=== PATIENT | female | born 1970 | race Caucasian/White ===

== ENCOUNTER 2017-10-10 00:08 | Emergency (ER) | payer SELFPAY ==
[~2017-10-10] VITALS: Ht 172.7 cm; Wt 88.9 kg
[2017-10-10] MEDS ORDERED: fentaNYL INJECTION 100 MCG/2 ML AMP IVP ONE (00:30)
[2017-10-10] MEDS ORDERED: ORPHENADRINE 60 MG/2 ML (NORFLEX) AMP IM ONE (00:30)
--- NOTE | 2017-10-10 00:53 | ED Back Pain ---
General Chief Complaint: Back Problems Stated Complaint: BACK PAIN Nursing Triage Note: PT TO ED 7 W/ C/O LOWER BACK PAIN ONSET 1500 TODAY. DENIES INJURY Nursing Sepsis Screen: No Definite Risk Source of Information: Patient Exam Limitations: No Limitations History of Present Illness Date Seen by Provider: Oct 10, 2017 Time Seen by Provider: 00:14 Initial Comments This 46-year-old woman presents to the emergency room with complaints of lower back pain that started around 15:00. She denies any strenuous activity or injury that prompted the pain. She has had episodes of lower back pain before. She has not taken any medications for the pain. She has associated headache. She reports Toradol intensifies headache and she therefore she does not want to take Toradol. She denies any notable lower extremity paresthesias or weakness. She is ambulatory. She denies any bowel or bladder dysfunction. Allergies and Home Medications Allergies Coded Allergies: Penicillins (Verified Allergy, Unknown, 10/10/17) erythromycin base (Verified Allergy, Unknown, 10/10/17) ketorolac (Verified Adverse Reaction, Unknown, 10/10/17) Uncoded Allergies: VALACEF (Allergy, Unknown, 10/10/17) Home Medications Cyclobenzaprine HCl 10 Mg Tablet, 10 MG PO TID PRN for SPASMS Prescribed by: RAJESH POPE on 10/10/17 005 Prednisone 20 Mg Tab, 20 MG PO DAILY Prescribed by: RAJESH POPE on 10/10/17 0056 Patient Home Medication List Home Medication List Reviewed: Yes Constitutional: no symptoms reported EENTM: no symptoms reported Respiratory: no symptoms reported Cardiovascular: no symptoms reported Gastrointestinal: no symptoms reported Genitourinary: no symptoms reported : No Musculoskeletal: see HPI Skin: no symptoms reported Psychiatric/Neurological: No Symptoms Reported Past Ymniane-Lxuyxt-Jriijw Hx Patient Social History Alcohol Use: Denies Use Recreational Drug Use: No Smoking Status: Never a Smoker Recent Foreign Travel: No Contact w/Someone Who Travel: No Recent Infectious Disease Expo: No Recent Hopitalizations: No Physical Abuse: No Sexual Abuse: No Mistreated: No Fear: No Past Medical History Surgeries: Yes Adenoidectomy, Appendectomy, Section, Gallbladder, Hysterectomy, Orthopedic, Tonsillectomy Respiratory: No Cardiac: No Neurological: No Genitourinary: No Gastrointestinal: No Musculoskeletal: No Endocrine: No HEENT: No Cancer: No Psychosocial: No Nursing Suicide Risk Score: 0 Integumentary: No Adverse Reaction/Blood Tranf: No Physical Exam Vital Signs Vital Signs - First Documented 10/10/17 00:13 Temp 95.0 Pulse 78 Resp 18 B/P (MAP) 136/83 (100) Pulse Ox 99 O2 Delivery Room Air Capillary Refill : Less Than 3 Seconds General Appearance: WD/WN, Mild Distress HEENT: PERRL/EOMI, Normal ENT Inspection Neck: Normal Inspection Cardiovascular: Regular Rate, Rhythm, No Edema, No Murmur Respiratory: Lungs Clear, Normal Breath Sounds, No Accessory Muscle Use, No Respiratory Distress Gastrointestinal: Non Tender, Soft Back: Normal Inspection, Vertebral Tenderness (lumbar), Other (tenderness in the paraspinous muscles of the lower back) Extremity: Normal Inspection, No Pedal Edema Neurologic/Psychiatric: Alert, Oriented x3, No Motor/Sensory Deficits, Normal Mood/Affect, safety supervisor II-XII Norm as Tested, Abnormal Cerebellar Tests Skin: Normal Color, Warm/Dry Progress/Results/Core Measures My Orders Orders - RAJESH AYALA MD Fentanyl Injection (Sublimaze Injection (10/10/17 00:30) Orphenadrine Injection (Norflex Injectio (10/10/17 00:30) Medications Given in ED Current Medications Medications Dose Ordered Sig/Tona Route Start Time Stop Time Status Last Admin Dose Admin Fentanyl Citrate 75 mcg ONCE ONCE IVP 10/10/17 00:30 10/10/17 00:31 DC 10/10/17 00:34 75 MCG Orphenadrine Citrate 60 mg ONCE ONCE IM 10/10/17 00:30 10/10/17 00:31 DC 10/10/17 00:34 60 MG Vital Signs/I&O 10/10/17 00:13 Temp 95.0 Pulse 78 Resp 18 B/P (MAP) 136/83 (100) Pulse Ox 99 O2 Delivery Room Air Blood Pressure Mean: 100 Progress Note : Progress Note Patient received injections of fentanyl and Norflex with good improvement. Discharge instructions reviewed. Patient ambulated freely from the ER. Departure Impression Primary Impression: Lower back pain Qualified Codes: M54.5 - Low back pain Disposition: 01 HOME, SELF-CARE Condition: Improved Departure-Patient Inst. Decision time for Depature: 00:49 Referrals: NO,LOCAL PHYSICIAN (PCP/Family) Primary Care Physician Patient Instructions: Low Back Pain (DC) Add. Discharge Instructions: Take ibuprofen up to 600 mg every 6 hours as needed for primary pain control. Add Tylenol (acetaminophen) up to 1000 mg every 6 hours as needed for additional pain relief. Use gentle heat to help relax your muscles. Use cyclobenzaprine as prescribed if needed for a muscle relaxer. Use this medication with caution as it may cause drowsiness. Return to care if symptoms are worsening, especially if you develop weakness in your legs or loss of control of your bowels or bladder. Start the prednisone as prescribed tomorrow if symptoms are not improving. All discharge instructions reviewed with patient and/or family. Voiced understanding. Scripts Prednisone (Prednisone) 20 Mg Tab 20 MG PO DAILY, #5 TAB Prov: RAJESH AYALA MD 10/10/17 Cyclobenzaprine HCl (Cyclobenzaprine HCl) 10 Mg Tablet 10 MG PO TID PRN for SPASMS, #10 TAB Prov: RAJESH AYALA MD 10/10/17 Work/School Note: Work Release Form Date Seen in the Emergency Department: Oct 10, 2017 Return to Work: Oct 11, 2017 Restrictions: No Restrictions RAJESH AYALA MD Oct 10, 2017 00:53
[2017-10-10] MEDS ORDERED: CYCL10TA9 PO (00:54)
[2017-10-10] MEDS ORDERED: PRD20T PO ×2 (00:54→00:56)
[2017-10-10 01:05] VITALS: BP 131/77
== END 2017-10-10 01:05 | disposition home or self-care (01) ==
LOC: ER 00:11
DX: M54.5 Low back pain (principal); Z90.89 Acquired absence of other organs; Z90.49 Acquired absence of other specified parts of digestive tract; Z87.59 Personal history of other complications of pregnancy, childbirth and the puerperium; Z90.710 Acquired absence of both cervix and uterus; Z88.0 Allergy status to penicillin; Z88.1 Allergy status to other antibiotic agents; Z88.8 Allergy status to other drugs, medicaments and biological substances
CPT/HCPCS: 96372; 96374; 99284

== ENCOUNTER → 2017-12-02 | Outpatient (CLI) | payer SELFPAY ==
[~2017-12-02] MED LIST: CYCL10TA9 PO; PRD20T PO
== END ==
LOC: RAD 06:35
PROVIDERS: ATTEND Nurse Practitioner Family
DX: Z53.8 Procedure and treatment not carried out for other reasons (principal); N94.10 Unspecified dyspareunia

== ENCOUNTER → 2017-12-10 | Outpatient (CLI) | payer SELFPAY ==
--- NOTE | 2017-12-10 12:43 | Diagnostic Imaging Report ---
INDICATION: Dyspareunia. Patient had total hysterectomy in 2003. TECHNIQUE: Multiple realtime grayscale images were obtained of the pelvis in various projections endovaginally. Transabdominal imaging was also performed. The uterus is surgically absent. The bladder is unremarkable. The ovaries were not visualized. No adnexal mass or free fluid is seen. IMPRESSION: Status post hysterectomy. No pelvic mass or fluid collection is identified. Dictated by: Dictated on workstation # [id number]
== END ==
LOC: RAD 11:34
PROVIDERS: ATTEND Nurse Practitioner Family
DX: N94.10 Unspecified dyspareunia (principal); Z90.710 Acquired absence of both cervix and uterus
CPT/HCPCS: 76830; 76856

== ENCOUNTER 2018-08-10 15:39 | Emergency (ER) | payer SELFPAY ==
[~2018-08-10] VITALS: Ht 172.7 cm; Wt 90.7 kg
--- OUTSIDE RECORDS SUMMARY | 2018-08-10 15:46 | XMS REPORT ---
Author Author GARFIELD SMITH [facility] Address [address] [place] [address] Care Team Providers Care Semiconductors Wafer Breaker Name Role Phone GARFIELD SIMTH Unavailable PROBLEMS Type Condition ICD9-CM Code [id number] Code Onset Dates Condition Status SNOMED Code Problem Migraine without aura and without status migrainosus, not intractable G43.009 Active 021529011 Problem Dyspareunia in female N94.10 Active 28737383 Problem Severe episode of recurrent major depressive disorder, without psychotic features F33.2 Active 72249756 Problem Dysthymia F34.1 Active 17462565 Problem Primary insomnia F51.01 Active 1769316 Problem Posttraumatic stress disorder F43.10 Active 00393550 ALLERGIES Substance Reaction Event Type Date Status Penicillin V Potassium Unknown Drug Allergy Jan, Active Ketorolac Tromethamine Unknown Drug Allergy Jan, Active Erythromycin Unknown Drug Allergy Jan, Active ENCOUNTERS Encounter Location Date Diagnosis [place] [address] [address] Mar, [place] [address] [place] [id number] [place] [address] Feb, [place] [address] [address] Feb, Migraine without aura and without status migrainosus, not intractable G43.009 and Dysthymia F34.1 [facility] [address] [address] Jan, Severe episode of recurrent major depressive disorder, without psychotic features F33.2 and Posttraumatic stress disorder F43.10 [facility] [id number] [place] [address] Jan, [place] [address], [place] [address] Jan, Syncope, unspecified syncope type R55 [facility] [id number] [place] [address] Jan, [facility] [address] [place] [address]- 6[address] Jan, Vertigo R42 [facility] [id number] [place] [address] Jan, Dizziness R42 ; Acute cystitis with hematuria N30.01 and Dysuria R30.0 [place] [id number] [place] [address] Jan, Severe episode of recurrent major depressive disorder, without psychotic features F33.2 and Posttraumatic stress disorder F43.10 [place] [id number] [place] [address] 47[address] Dec, Severe episode of recurrent major depressive disorder, without psychotic features F33.2 [place] [address] [place] [address] Dec, Severe episode of recurrent major depressive disorder, without psychotic features F33.2 and Posttraumatic stress disorder F43.10 [facility] [address] [address] Nov, Dyspareunia in female N94.10 [facility] [address] [place] [address] Nov, Severe episode of recurrent major depressive disorder, without psychotic features F33.2 and Posttraumatic stress disorder F43.10 [facility] [address] [place] [address] 37[address] Nov, Primary insomnia F51.01 ; Severe episode of recurrent major depressive disorder, without psychotic features F33.2 and Dyspareunia in female N94.10 [facility] [address] [place] [address] Nov, [place] [address] [facility] [id number] [address] October, Severe episode of recurrent major depressive disorder, without psychotic features F33.2 and Posttraumatic stress disorder F43.10 [place] [address] [facility] [id number], [place] [address] October, Severe episode of recurrent major depressive disorder, without psychotic features F33.2 and Posttraumatic stress disorder F43.10 [place] [address] [place] [id number] [address] October, Dysthymia F34.1 ; Encounter to establish care Z76.89 ; Routine health maintenance Z00.00 and Closed compression fracture of L2 lumbar vertebra with routine healing, subsequent encounter S32.020D [place] [address] [place] [address] [id number] [address] Sep, Lumbar pain with radiation down right leg M54.5 and Nausea R11.0 IMMUNIZATIONS No Known Immunizations SOCIAL HISTORY Never Assessed REASON FOR VISIT Dizziness / passing out- States last thursday she began getting dizzy, saw Carly on Thursday because she ''passed out'', then states today while in the car began getting groggy then ''passed out''- Adelaide Lehman RN PLAN OF CARE Activity Details Follow Up 1-2wk if not improving with PCP or reg follow up Reason: VITAL SIGNS Height 67 in 2018-02-01 Weight 211 lbs 2018-02-01 Temperature 97.8 degrees Fahrenheit 2018-02-01 Heart Rate 80 bpm 2018-02-01 Respiratory Rate 16 2018-02-01 BMI 33.04 kg/m2 2018-02-01 Blood pressure systolic 138 mmHg 2018-02-01 Blood pressure diastolic 74 mmHg 2018-02-01 MEDICATIONS Medication Instructions Dosage Frequency Start Date End Date Duration Status Prozac 40 MG Orally Once a day 1 capsule in the morning 24h October, 30 day(s) Active Meclizine HCl 25 MG Orally 2 times a day PRN 1 tablet as needed Jan, 07 days Active Trazodone HCl 50 mg Orally at bedtime 1/2 tablet at bedtime as needed Nov, 30 day(s) Active RESULTS No Results PROCEDURES Procedure Date Ordered Result Body Site ELECTROCARDIOGRAM, TRACING Feb 01, 2018 GLUCOSE BLOOD TEST Feb 01, 2018 BASIC METABOLIC PANEL Feb 01, 2018 COMPLETE CBC W/AUTO DIFF WBC Feb 01, 2018 VENIPUNCT, ROUTINE* Feb 01, 2018 ASSAY THYROID STIM HORMONE Feb 01, 2018 INSTRUCTIONS MEDICATIONS ADMINISTERED No Known Medications MEDICAL (GENERAL) HISTORY Type Description Date Medical History 10% compression of L2, narrowing of L1&L2 disc space Surgical History ankle surgery, right Surgical History right knee arthroscopy Surgical History hysterectomy Surgical History tonsillectomy and adenoidectomy Surgical History colonoscopy Surgical History appendectomy (with hysterectomy) Surgical History cholecystectomy Surgical History exploratory laparoscopy (multiple) Hospitalization History surgeries
--- OUTSIDE RECORDS SUMMARY | 2018-08-10 15:46 | XMS REPORT ---
Author Author KING WILLIAM [facility] Address [address] [place] [address] Care Team Providers Care Expense Clerk Name Role Phone WILLIAM OROZCO Unavailable PROBLEMS Type Condition ICD9-CM Code [id number] Code Onset Dates Condition Status SNOMED Code Problem Migraine without aura and without status migrainosus, not intractable G43.009 Active 992014129 Problem Dyspareunia in female N94.10 Active 29715034 Problem Severe episode of recurrent major depressive disorder, without psychotic features F33.2 Active 13624471 Problem Dysthymia F34.1 Active 54323232 Problem Primary insomnia F51.01 Active 2551809 Problem Posttraumatic stress disorder F43.10 Active 76471524 ALLERGIES No Information ENCOUNTERS Encounter Location Date Diagnosis [place] [address] [place] [id number] [place] [address] Mar, [place] [address] [place] [id number] [place] [address] Feb, [place] [address] [place] [id number] [place] [address] Feb, Migraine without aura and without status migrainosus, not intractable G43.009 and Dysthymia F34.1 [facility] [address] [id number] [place] [address] Jan, Severe episode of recurrent major depressive disorder, without psychotic features F33.2 and Posttraumatic stress disorder F43.10 [facility] [address] [place] [id number] [place] [address]- [address] Jan, [place] [address] [place] [id number] [place] [address]- [address] Jan, Syncope, unspecified syncope type R55 [place] [address], [place] [address] Jan, [facility] [address] [id number] [place] [address]- [address] Jan, Vertigo R42 [facility] [address], [place] [address] Jan, Dizziness R42 ; Acute cystitis with hematuria N30.01 and Dysuria R30.0 [facility] [id number] [address] Jan, Severe episode of recurrent major depressive disorder, without psychotic features F33.2 and Posttraumatic stress disorder F43.10 [place] [address] [place] [id number] [place] [address]80[address] Dec, Severe episode of recurrent major depressive disorder, without psychotic features F33.2 [place] [address] [place] [id number] [place] [address]88- 6[address] Dec, Severe episode of recurrent major depressive disorder, without psychotic features F33.2 and Posttraumatic stress disorder F43.10 [facility] [address] [place] [address] 8[address]- 3[address] Nov, Dyspareunia in female N94.10 [place] [address], [place] [address] Nov, Severe episode of recurrent major depressive disorder, without psychotic features F33.2 and Posttraumatic stress disorder F43.10 [facility] [address], [place] [address] Nov, Primary insomnia F51.01 ; Severe episode of recurrent major depressive disorder, without psychotic features F33.2 and Dyspareunia in female N94.10 [facility] [address], [place] [address] Nov, [facility] [address], [place] [address] October, Severe episode of recurrent major depressive disorder, without psychotic features F33.2 and Posttraumatic stress disorder F43.10 [facility] [address] [facility] [id number] [address] October, Severe episode of recurrent major depressive disorder, without psychotic features F33.2 and Posttraumatic stress disorder F43.10 [facility] [address] [facility] [id number] [address] October, Dysthymia F34.1 ; Encounter to establish care Z76.89 ; Routine health maintenance Z00.00 and Closed compression fracture of L2 lumbar vertebra with routine healing, subsequent encounter S32.020D [place] [address] [facility] [id number] [address] Sep, Lumbar pain with radiation down right leg M54.5 and Nausea R11.0 IMMUNIZATIONS No Known Immunizations SOCIAL HISTORY Never Assessed REASON FOR VISIT question PLAN OF CARE VITAL SIGNS MEDICATIONS Unknown Medications RESULTS No Results PROCEDURES No Known procedures INSTRUCTIONS MEDICATIONS ADMINISTERED No Known Medications MEDICAL [...]
--- OUTSIDE RECORDS SUMMARY | 2018-08-10 15:46 | XMS REPORT ---
Author Author NORMA GREEN [facility] Address [address] [place] [address] Care Team Providers Care Washing Machine Loader Name Role Phone NORMA GREEN Unavailable PROBLEMS Type Condition ICD9-CM Code [id number] Code Onset Dates Condition Status SNOMED Code Problem Migraine without aura and without status migrainosus, not intractable G43.009 Active 319643169 Problem Dyspareunia in female N94.10 Active 86828583 Problem Severe episode of recurrent major depressive disorder, without psychotic features F33.2 Active 40753644 Problem Dysthymia F34.1 Active 02861766 Problem Primary insomnia F51.01 Active 6755995 Problem Posttraumatic stress disorder F43.10 Active 93729957 ALLERGIES No Information ENCOUNTERS Encounter Location Date Diagnosis [facility] [address] [id number] [place] [address] Mar, [facility] [address] [address] Feb, Lumbar pain with radiation down right leg M54.5 [facility] [id number] [place] [address] 01316- 28[address] Feb, [facility] [id number] [place] [address] 860[address]- [address] Feb, [facility] [id number] [place] [address] 49[address]- [address] Feb, Migraine without aura and without status migrainosus, not intractable G43.009 and Dysthymia F34.1 [facility] [address] [place] [address] 02032- 8697 Jan, Severe episode of recurrent major depressive disorder, without psychotic features F33.2 and Posttraumatic stress disorder F43.10 [place] [address] [address] Jan, [facility] [address] [id number] [place] [address] 81068- 9[address] Jan, Syncope, unspecified syncope type R55 [facility] [id number] [place] [address]88- 7055 Jan, [facility] [id number] [place] [address]- 6[address] Jan, Vertigo R42 [facility] [id number] [place] [address] Jan, Dizziness R42 ; Acute cystitis with hematuria N30.01 and Dysuria R30.0 [place] [id number] [place] [address]- [address] Jan, Severe episode of recurrent major depressive disorder, without psychotic features F33.2 and Posttraumatic stress disorder F43.10 [place] [address] [place] [address] 90335- 9859 Dec, Severe episode of recurrent major depressive disorder, without psychotic features F33.2 [place] [address] [place] [address] 57293- 3029 Dec, Severe episode of recurrent major depressive disorder, without psychotic features F33.2 and Posttraumatic stress disorder F43.10 [place] [address] [address] Nov, Dyspareunia in female N94.10 [facility] [address] [address]- [address] Nov, Severe episode of recurrent major depressive disorder, without psychotic features F33.2 and Posttraumatic stress disorder F43.10 [facility] [address] [address] Nov, Primary insomnia F51.01 ; Severe episode of recurrent major depressive disorder, without psychotic features F33.2 and Dyspareunia in female N94.10 [place] [address] [place] [id number] [address] Nov, [place] [address] [place] [address]50- 3337 October, Severe episode of recurrent major depressive disorder, without psychotic features F33.2 and Posttraumatic stress disorder F43.10 [place] [address] [address] [address] [place] [address] 20669- 6687 October, Severe episode of recurrent major depressive disorder, without psychotic features F33.2 and Posttraumatic stress disorder F43.10 [place] [address] [address] [address] [place] [address]805- 3[address] October, Dysthymia F34.1 ; Encounter to establish care Z76.89 ; Routine health maintenance Z00.00 and Closed compression fracture of L2 lumbar vertebra with routine healing, subsequent encounter S32.020D [place] [address] [place] [address]19- 0885 Sep, Lumbar pain with radiation down right leg M54.5 and Nausea R11.0 IMMUNIZATIONS No Known Immunizations SOCIAL HISTORY Never Assessed REASON FOR VISIT f/u PLAN OF CARE Activity Details Follow Up Next available Reason: F/U VITAL SIGNS MEDICATIONS Unknown Medications RESULTS No Results PROCEDURES Procedure Date Ordered Result Body Site Psychotherapy, patient &/family, 45 minutes, established patient Feb 18, 2018 INSTRUCTIONS MEDICATIONS ADMINISTERED No Known Medications [...]
--- OUTSIDE RECORDS SUMMARY | 2018-08-10 15:46 | XMS REPORT ---
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 Active 14518304 Problem Dysthymia F34.1 Active 32022336 Problem Primary insomnia F51.01 Active 7349224 Problem Posttraumatic stress disorder F43.10 Active 51099006 ALLERGIES Substance Reaction Event Type Date Status Penicillin V Potassium Unknown Drug Allergy Feb, Active Ketorolac Tromethamine Unknown Drug Allergy Feb, Active Erythromycin Unknown Drug Allergy Feb, Active ENCOUNTERS Encounter Location Date Diagnosis [place] [id number] [place] [address] 41942- 2522 Mar, [facility] [id number] [place] [address] 22917- 6624 Feb, Lumbar pain with radiation down right leg M54.5 [facility] [id number] [place] [address] 66336- 7300 Feb, [facility] [id number] [place] [address] 67623- 5472 Feb, [facility] [id number] [place] [address] 65868- 7413 Feb, Migraine without aura and without status migrainosus, not intractable G43.009 and Dysthymia F34.1 [facility] [address] 55367- 6039 Jan, Severe episode of recurrent major depressive disorder, without psychotic features F33.2 and Posttraumatic stress disorder F43.10 [facility] [id number] [place] [address] 14886- 6828 Jan, [facility] [id number] [place] [address] 58403- 9069 Jan, Syncope, unspecified syncope type R55 [facility] [id number] [place] [address] 90812- 6219 Jan, [facility] [id number] [place] [address] 33148- 0521 Jan, Vertigo R42 [facility] [id number] [place] [address] 94749 -7144 Jan, Dizziness R42 ; Acute cystitis with hematuria N30.01 and Dysuria R30.0 [place] [id number] [place] [address] 29979- 7870 Jan, Severe episode of recurrent major depressive disorder, without psychotic features F33.2 and Posttraumatic stress disorder F43.10 [place] [id number] [place] [address] 21010- 8742 Dec, Severe episode of recurrent major depressive disorder, without psychotic features F33.2 [place] [id number] [place] [address] 54560- 2191 Dec, Severe episode of recurrent major depressive disorder, without psychotic features F33.2 and Posttraumatic stress disorder F43.10 [facility] [id number] [place] [address] 02738- 1160 Nov, Dyspareunia in female N94.10 [facility] [id number] [place] [address] 26721- 4677 Nov, Severe episode of recurrent major depressive disorder, without psychotic features F33.2 and Posttraumatic stress disorder F43.10 [facility] [id number] [place] [address] 50580- 3479 Nov, Primary insomnia F51.01 ; Severe episode of recurrent major depressive disorder, without psychotic features F33.2 and Dyspareunia in female N94.10 [place] [id number] [place] [address] 83480- 1651 Nov, [place] [id number] [place] [address] 88029- 2035 October, Severe episode of recurrent major depressive disorder, without psychotic features F33.2 and Posttraumatic stress disorder F43.10 [place] [id number] [place] [address] 31480- 3772 October, Severe episode of recurrent major depressive disorder, without psychotic features F33.2 and Posttraumatic stress disorder F43.10 [place] [address] [place] [address] 69055- 8222 October, Dysthymia F34.1 ; Encounter to establish care Z76.89 ; Routine health maintenance Z00.00 and Closed compression fracture of L2 lumbar vertebra with routine healing, subsequent encounter S32.020D [place] [address] [place] [address] 40316- 4251 Sep, Lumbar pain with radiation down right leg M54.5 and Nausea R11.0 IMMUNIZATIONS Vaccine Route Administration Date Status PHENERGAN (IM) 25 MG (25 MG/ML) IM Intramuscular Mar 03, 2018 Administered SOCIAL HISTORY Never Assessed REASON FOR VISIT Headache x 3 days. Tylenol/Ibuprofen/Excedrin Migraine. Allergy to Toradol. Pt requesting refill on depression medication.-[facility] PLAN OF CARE Activity Details Follow Up prn Reason: VITAL SIGNS Height 67 in 2018-03-03 Weight 213.3 lbs 2018-03-03 Temperature 98.7 degrees Fahrenheit 2018-03-03 Heart Rate 80 bpm 2018-03-03 Respiratory Rate 18 2018-03-03 BMI 33.40 kg/m2 2018-03-03 Blood pressure systolic 138 mmHg 2018-03-03 Blood pressure diastolic 88 mmHg 2018-03-03 MEDICATIONS Medication Instructions Dosage Frequency Start Date End Date Duration Status Prozac 40 mg Orally Once a day 1 capsule in the morning 24h October, 30 day(s) Active Imitrex 25 MG Orally Twice a day prn 1 tablet as needed Feb, Active Trazodone HCl 50 mg Orally at bedtime 1/2 tablet at bedtime as needed Nov, 30 day(s) Active Promethazine HCl 50 MG/ML Injection one time 0.5 ml Feb,Feb 1 dose Active RESULTS No Results PROCEDURES Procedure Date Ordered Result Body Site PHENERGAN (IM) 25 MG (25 MG/ML) Mar 03, 2018 THER/PROPH/DIAG INJ, SC/IM Mar 03, 2018 INSTRUCTIONS MEDICATIONS ADMINISTERED No Known Medications [...]
--- OUTSIDE RECORDS SUMMARY | 2018-08-10 15:46 | XMS REPORT ---
Author Author DORIAN WALKER Organization [facility] Address [address] [place] [address] Care Team Providers Care Refrigerated Company Driver Name Role Phone WALKERDORIAN Unavailable PROBLEMS Type Condition ICD9-CM Code XMU33-HG Code Onset Dates Condition Status SNOMED Code Problem Migraine without aura and without status migrainosus, not intractable G43.009 Active 496413396 Problem Dyspareunia in female N94.10 Active 20686388 Problem Severe episode of recurrent major depressive disorder, without psychotic features F33.2 Active 32060156 Problem Dysthymia F34.1 Active 52715069 Problem Primary insomnia F51.01 Active 2925025 Problem Posttraumatic stress disorder F43.10 Active 94534154 ALLERGIES No Information ENCOUNTERS Encounter Location Date Diagnosis [facility] [address] 0[address]86- 9398 18 Mar, 2018 [facility] [address] 85368 -8304 Mar, [facility] [id number] [place] [address] 09648- 5433 Feb, Lumbar pain with radiation down right leg M54.5 [facility] [id number] [place] [address] 81355- 6873 Feb, [facility] [address] 35205- 2157 Feb, [facility] [address] 58751- 8084 Feb, Migraine without aura and without status migrainosus, not intractable G43.009 and Dysthymia F34.1 [facility] [address] 29737- 2301 Jan, Severe episode of recurrent major depressive disorder, without psychotic features F33.2 and Posttraumatic stress disorder F43.10 [facility] [id number] [place] [address] 15130- 0498 Jan, [facility] [id number] [place] [address] 91813- 0162 Jan, Syncope, unspecified syncope type R55 [facility] [id number] [place] [address] 66810- 6997 Jan, [facility] [id number] [place] [address] 70269- 9926 Jan, Vertigo R42 [facility] [id number] [place] [address] 31394 -6493 Jan, Dizziness R42 ; Acute cystitis with hematuria N30.01 and Dysuria R30.0 [facility] [id number] [place] [address] 82920- 5081 Jan, Severe episode of recurrent major depressive disorder, without psychotic features F33.2 and Posttraumatic stress disorder F43.10 [place] [id number] [place] [address] 85898- 1816 Dec, Severe episode of recurrent major depressive disorder, without psychotic features F33.2 [facility] [address] [address] 5093 Dec, Severe episode of recurrent major depressive disorder, without psychotic features F33.2 and Posttraumatic stress disorder F43.10 [facility] [id number] [place] [address] 88349- 0066 Nov, Dyspareunia in female N94.10 [facility] [id number] [place] [address] 39919- 3349 Nov, Severe episode of recurrent major depressive disorder, without psychotic features F33.2 and Posttraumatic stress disorder F43.10 [facility] [id number] [place] [address] 53042- 2164 Nov, Primary insomnia F51.01 ; Severe episode of recurrent major depressive disorder, without psychotic features F33.2 and Dyspareunia in female N94.10 [place] [address] [place] [address] 86277- 9726 Nov, [place] [id number] [place] [address] 55914- 1667 October, Severe episode of recurrent major depressive disorder, without psychotic features F33.2 and Posttraumatic stress disorder F43.10 [place] [id number] [place] [address] 16405- 0197 October, Severe episode of recurrent major depressive disorder, without psychotic features F33.2 and Posttraumatic stress disorder F43.10 [place] [id number] [place] [address] 47402- 4652 October, Dysthymia F34.1 ; Encounter to establish care Z76.89 ; Routine health maintenance Z00.00 and Closed compression fracture of L2 lumbar vertebra with routine healing, subsequent encounter S32.020D [place] [address] [place] [address] 60862- 0969 Sep, Lumbar pain with radiation down right leg M54.5 and Nausea R11.0 IMMUNIZATIONS No Known Immunizations SOCIAL HISTORY Never Assessed REASON FOR VISIT bumps underarm - right- since thursday... had appt on ...she showed ramila then. was advised if they didnt get better...make an appt with her. pt came to [facility] today...no co pay...appt will be made with ramila schuler aprn. advised pt to tylenol et ibuprofen wasm moist packs, et fu with pcp. karen appt made with mitch dennis on at 0820 PLAN OF CARE VITAL SIGNS Height 67 in 2018-04-03 Weight 214.8 lbs 2018-04-03 Temperature 97.9 degrees Fahrenheit 2018-04-03 Heart Rate 80 bpm 2018-04-03 Respiratory Rate 20 2018-04-03 BMI 33.64 kg/m2 2018-04-03 Blood pressure systolic 126 mmHg 2018-04-03 Blood pressure diastolic 80 mmHg 2018-04-03 MEDICATIONS Medication Instructions Dosage Frequency Start Date End Date Duration Status Prozac 40 mg Orally Once a day 1 capsule in the morning 24h October, 30 day(s) Active Naproxen 500 mg Orally every 12 hrs 1 tablet with food or milk as needed 12h Feb, Active Gabapentin 300 MG Orally twice a day 1 capsule 12h Feb, 30 day( s) Active RESULTS No Results PROCEDURES No Known procedures [...]
--- OUTSIDE RECORDS SUMMARY | 2018-08-10 15:46 | XMS REPORT ---
Author Author WILLIAM OROZCO Organization [facility] Address [address] [place] [address] Care Team Providers Care Scrap Cutter Name Role Phone WILLIAM OROZCO Unavailable PROBLEMS Type Condition ICD9-CM Code MHE79-FT Code Onset Dates Condition Status SNOMED Code Problem Migraine without aura and without status migrainosus, not intractable G43.009 Active 256029479 Problem Dyspareunia in female N94.10 Active 89060130 Problem Severe episode of recurrent major depressive disorder, without psychotic features F33.2 Active 00297236 Problem Dysthymia F34.1 Active 42184833 Problem Primary insomnia F51.01 Active 2508407 Problem Posttraumatic stress disorder F43.10 Active 28013415 ALLERGIES No Information ENCOUNTERS Encounter Location Date Diagnosis [facility] [address] 25169- 3150 Apr, Migraine without aura and without status migrainosus, not intractable G43.009 [facility] [id number] [place] [address] 78915- 7000 19 Mar, 2018 [facility] [id number] [place] [address] 25661- 8184 16 Mar, 2018 Skin infection L08.9 [facility] [id number] [place] [address] 26202 -1137 13 Mar, 2018 [facility] [address] 55908- 9728 Feb, Lumbar pain with radiation down right leg M54.5 [facility] [address] 68993- 5908 24 Feb, 2018 [facility] [address] 73057- 9676 Feb, [facility] [id number] [place] [address] 75082- 4387 Feb, Migraine without aura and without status migrainosus, not intractable G43.009 and Dysthymia F34.1 [facility] [id number] [place] [address] 21607- 7998 Jan, Severe episode of recurrent major depressive disorder, without psychotic features F33.2 and Posttraumatic stress disorder F43.10 [place] [id number] [place] [address] 42223- 0116 Jan, [place] [id number] [place] [address] 48971- 3114 Jan, Syncope, unspecified syncope type R55 [facility] [id number] [place] [address] 67264- 2131 Jan, [place] [address] 75425- 7564 Jan, Vertigo R42 [facility] [id number] [place] [address] 44630 -2617 Jan, Dizziness R42 ; Acute cystitis with hematuria N30.01 and Dysuria R30.0 [facility] [id number] [place] [address] 45901- 3122 Jan, Severe episode of recurrent major depressive disorder, without psychotic features F33.2 and Posttraumatic stress disorder F43.10 [place] [id number] [place] [address] 75874- 3865 Dec, Severe episode of recurrent major depressive disorder, without psychotic features F33.2 [place] [id number] [place] [address] 35677- 3719 Dec, Severe episode of recurrent major depressive disorder, without psychotic features F33.2 and Posttraumatic stress disorder F43.10 [facility] [id number] [place] [address] 44042- 8471 Nov, Dyspareunia in female N94.10 [place] [address] [place] [address] 68356- 0151 11 Nov, 2017 Severe episode of recurrent major depressive disorder, without psychotic features F33.2 and Posttraumatic stress disorder F43.10 [place] [address] [place] [address] 48387- 6580 06 Nov, 2017 Primary insomnia F51.01 ; Severe episode of recurrent major depressive disorder, without psychotic features F33.2 and Dyspareunia in female N94.10 [place] [id number] [place] [address] 92946- 7720 Nov, [place] [id number] [place] [address] 37823- 3289 October, Severe episode of recurrent major depressive disorder, without psychotic features F33.2 and Posttraumatic stress disorder F43.10 [place] [id number] [place] [address] 60684- 3500 14 Oct, 2017 Severe episode of recurrent major depressive disorder, without psychotic features F33.2 and Posttraumatic stress disorder F43.10 [place] [id number] [place] [address] 65376- 5155 14 Oct, 2017 Dysthymia F34.1 ; Encounter to establish care Z76.89 ; Routine health maintenance Z00.00 and Closed compression fracture of L2 lumbar vertebra with routine healing, subsequent encounter S32.020D [place] [id number] [place] [address] 53013- 8190 Sep, Lumbar pain with radiation down right leg M54.5 and Nausea R11.0 IMMUNIZATIONS No Known Immunizations SOCIAL HISTORY Never Assessed REASON FOR VISIT PLAN OF CARE VITAL SIGNS MEDICATIONS Medication Instructions Dosage Frequency Start Date End Date Duration Status Imitrex 25 MG Orally Twice a day prn 1 tablet as needed Feb, Active RESULTS No Results PROCEDURES No Known [...]
--- OUTSIDE RECORDS SUMMARY | 2018-08-10 15:46 | XMS REPORT ---
Author Author WILLIAM OROZCO [facility] Address [address] [place] [address] Care Team Providers Care Figure Model Name Role Phone WILLIAM OROZCO Unavailable PROBLEMS ALLERGIES No Information ENCOUNTERS IMMUNIZATIONS No Known Immunizations SOCIAL HISTORY No smoking Hx information available REASON FOR VISIT PLAN OF CARE VITAL SIGNS MEDICATIONS No Known Medications RESULTS No Results PROCEDURES No Known procedures INSTRUCTIONS MEDICATIONS ADMINISTERED No Known Medications MEDICAL (GENERAL) HISTORY
--- OUTSIDE RECORDS SUMMARY | 2018-08-10 15:46 | XMS REPORT ---
Author Author IWLLIAM OROZCO [facility] Address [address] [place] [address] Care Team Providers Care Compliance Manager Name Role Phone WILLIAM OROZCO Unavailable PROBLEMS Type Condition ICD9-CM Code AHN39-PF Code Onset Dates Condition Status SNOMED Code Problem Migraine without aura and without status migrainosus, not intractable G43.009 Active 106739605 Problem Dyspareunia in female N94.10 Active 26617160 Problem Severe episode of recurrent major depressive disorder, without psychotic features F33.2 Active 04642653 Problem Dysthymia F34.1 Active 99305263 Problem Primary insomnia F51.01 Active 9565058 Problem Posttraumatic stress disorder F43.10 Active 86694663 ALLERGIES Substance Reaction Event Type Date Status Penicillin V Potassium Unknown Drug Allergy Feb, Active Ketorolac Tromethamine Unknown Drug Allergy Feb, Active Erythromycin Unknown Drug Allergy Feb, Active ENCOUNTERS Encounter Location Date Diagnosis [facility] [id number] [place] [address] 72503- 1695 Feb, Lumbar pain with radiation down right leg M54.5 [facility] [id number] [place] [address] 49658- 8197 Feb, [facility] [id number] [place] [address] 82383- 0970 Feb, [facility] [id number] [place] [address] 15593- 5615 Feb, Migraine without aura and without status migrainosus, not intractable G43.009 and Dysthymia F34.1 [facility] [id number] [place] [address] 90679- 5164 Jan, Severe episode of recurrent major depressive disorder, without psychotic features F33.2 and Posttraumatic stress disorder F43.10 [place] [address] [address]- [address]1 Jan, [facility] [id number] [place] [address] 40483- 0003 Jan, Syncope, unspecified syncope type R55 [facility] [id number] [place] [address] 74061- 9581 Jan, [facility] [id number] [place] [address] 87084- 2669 Jan, Vertigo R42 [facility] [id number] [place] [address] 20157 -8527 Jan, Dizziness R42 ; Acute cystitis with hematuria N30.01 and Dysuria R30.0 [place] [id number] [place] [address] 05109- 0700 Jan, Severe episode of recurrent major depressive disorder, without psychotic features F33.2 and Posttraumatic stress disorder F43.10 [place] [id number] [place] [address] 52017- 6535 Dec, Severe episode of recurrent major depressive disorder, without psychotic features F33.2 [place] [id number] [place] [address] 74066- 1339 Dec, Severe episode of recurrent major depressive disorder, without psychotic features F33.2 and Posttraumatic stress disorder F43.10 [place] [address] [place] [address] 32035- 7165 Nov, Dyspareunia in female N94.10 [facility] [id number] [place] [address] 73895- 6274 Nov, Severe episode of recurrent major depressive disorder, without psychotic features F33.2 and Posttraumatic stress disorder F43.10 [place] [address] [place] [address] 27632- 4841 Nov, Primary insomnia F51.01 ; Severe episode of recurrent major depressive disorder, without psychotic features F33.2 and Dyspareunia in female N94.10 [place] [address] [address]- 0495 Nov, [place] [address] [place] [address] 79288- 7258 October, Severe episode of recurrent major depressive disorder, without psychotic features F33.2 and Posttraumatic stress disorder F43.10 [place] [id number] [place] [address] 86296- 4384 October, Severe episode of recurrent major depressive disorder, without psychotic features F33.2 and Posttraumatic stress disorder F43.10 [place] [id number] [place] [address] 38566- 5994 October, Dysthymia F34.1 ; Encounter to establish care Z76.89 ; Routine health maintenance Z00.00 and Closed compression fracture of L2 lumbar vertebra with routine healing, subsequent encounter S32.020D [place] [address] [place] [address] 69476- 5075 Sep, Lumbar pain with radiation down right leg M54.5 and Nausea R11.0 IMMUNIZATIONS No Known Immunizations SOCIAL HISTORY Never Assessed REASON FOR VISIT Shortness of breath/Right sided back pain-[facility] [employer] PLAN OF CARE Activity Details Follow Up 4 Weeks Reason:back pain VITAL SIGNS Height 67 in 2018-03-17 Weight 215 lbs 2018-03-17 Temperature 98.4 degrees Fahrenheit 2018-03-17 Heart Rate 78 bpm 2018-03-17 Respiratory Rate 18 2018-03-17 Oximetry 98 % 2018-03-17 BMI 33.67 kg/m2 2018-03-17 Blood pressure systolic 128 mmHg 2018-03-17 Blood pressure diastolic 68 mmHg 2018-03-17 MEDICATIONS Medication Instructions Dosage Frequency Start Date End Date Duration Status Naproxen 500 mg Orally every 12 hrs 1 tablet with food or milk as needed 12h Feb, Active Gabapentin 300 MG Orally twice a day 1 capsule 12h Feb, 30 day( s) Active Prozac 40 mg Orally Once a day 1 capsule in the morning 24h October, 30 day(s) Active RESULTS No Results PROCEDURES No Known [...]
--- OUTSIDE RECORDS SUMMARY | 2018-08-10 15:47 | XMS REPORT ---
Author Author NORMA GREEN [facility] Address [address] [place] [address] Care Team Providers Care Designated Broker Name Role Phone NORMA GREEN Unavailable PROBLEMS Type Condition ICD9-CM Code XZM07-YK Code Onset Dates Condition Status SNOMED Code Problem Dyspareunia in female N94.10 Active 45171491 Problem Primary insomnia F51.01 Active 3502328 Problem Dysthymia F34.1 Active 43998163 Problem Posttraumatic stress disorder F43.10 Active 48269887 Problem Severe episode of recurrent major depressive disorder, without psychotic features F33.2 Active 34678869 ALLERGIES No Information ENCOUNTERS Encounter Location Date Diagnosis [facility] [id number] [place] [address] Mar, [facility] [address] [address] Jan, Severe episode of recurrent major depressive disorder, without psychotic features F33.2 and Posttraumatic stress disorder F43.10 [facility] [id number] [place] [address] 3606 Jan, [facility] [address] [address] Jan, Syncope, unspecified syncope type R55 [facility] [address] [address] Jan, [facility] [address] [address] Jan, Vertigo R42 [facility] [id number] [place] [address] Jan, Dizziness R42 ; Acute cystitis with hematuria N30.01 and Dysuria R30.0 [facility] [address], [place] [address] Jan, Severe episode of recurrent major depressive disorder, without psychotic features F33.2 and Posttraumatic stress disorder F43.10 [facility] [address], [place] [address] Dec, Severe episode of recurrent major depressive disorder, without psychotic features F33.2 [facility] [address], [place] [address] Dec, Severe episode of recurrent major depressive disorder, without psychotic features F33.2 and Posttraumatic stress disorder F43.10 [place] [address], [place] [address] Nov, Dyspareunia in female N94.10 [place] [address], [place] [address] Nov, Severe episode of recurrent major depressive disorder, without psychotic features F33.2 and Posttraumatic stress disorder F43.10 [place] [address], [place] [address] Nov, Primary insomnia F51.01 ; Severe episode of recurrent major depressive disorder, without psychotic features F33.2 and Dyspareunia in female N94.10 [facility] [address], [place] [address] Nov, [place] [address], [place] [address] October, Severe episode of recurrent major depressive disorder, without psychotic features F33.2 and Posttraumatic stress disorder F43.10 [place] [address], [place] [address] October, Severe episode of recurrent major depressive disorder, without psychotic features F33.2 and Posttraumatic stress disorder F43.10 [place] [address], [place] [address] October, Dysthymia F34.1 ; Encounter to establish care Z76.89 ; Routine health maintenance Z00.00 and Closed compression fracture of L2 lumbar vertebra with routine healing, [facility] [address] [facility] [id number] [place] [address] Sep, Lumbar pain with radiation down right leg M54.5 and Nausea R11.0 IMMUNIZATIONS No Known Immunizations SOCIAL HISTORY Never Assessed REASON FOR VISIT f/u PLAN OF CARE Activity Details Follow Up Next available Reason: F/U VITAL SIGNS MEDICATIONS Unknown Medications RESULTS No Results PROCEDURES Procedure Date Ordered Result Body Site Psychotherapy, patient &/family, 45 minutes, established patient December 30, 2017 INSTRUCTIONS MEDICATIONS ADMINISTERED No Known Medications MEDICAL [...]
--- OUTSIDE RECORDS SUMMARY | 2018-08-10 15:47 | XMS REPORT ---
Author Author WILLIAM OROZCO [facility] Address [address] [place] [address] Care Team Providers Care Heat Treat Inspector Name Role Phone AZN OROZCOTA Unavailable PROBLEMS Type Condition ICD9-CM Code [id number] Code Onset Dates Condition Status SNOMED Code Problem Dyspareunia in female N94.10 Active 37226770 Problem Primary insomnia F51.01 Active 5888003 Problem Dysthymia F34.1 Active 53999489 Problem Posttraumatic stress disorder F43.10 Active 13469735 Problem Severe episode of recurrent major depressive disorder, without psychotic features F33.2 Active 37044868 ALLERGIES Substance Reaction Event Type Date Status Penicillin V Potassium Unknown Drug Allergy Nov, Active Ketorolac Tromethamine Unknown Drug Allergy Nov, Active Erythromycin Unknown Drug Allergy Nov, Active ENCOUNTERS Encounter Location Date Diagnosis [facility] [id number] [place] [address] Jan, [facility] [address] [address] Jan, [facility] [id number] [place] [address] 567[address]- 9417 Jan, [facility] [id number] [place] [address] 36059- 0236 Jan, Syncope, unspecified syncope type R55 [facility] [id number] [place] [address] 90[address]- 9701 Jan, [facility] [address] [address] Jan, Vertigo R42 [facility] [id number] [place] [address] 06 Aug, 2018 Dizziness R42 ; Acute cystitis with hematuria N30.01 and Dysuria R30.0 [place] [address], [place] [address] Jan, Severe episode of recurrent major depressive disorder, without psychotic features F33.2 and Posttraumatic stress disorder F43.10 [place] [address], [place] [address] Dec, Severe episode of recurrent major depressive disorder, without psychotic features F33.2 [place] [id number] [place] [address]280- 1435 Dec, Severe episode of recurrent major depressive disorder, without psychotic features F33.2 and Posttraumatic stress disorder F43.10 [place] [id number] [place] [address] 00843- 7144 Nov, Dyspareunia in female N94.10 [place] [id number] [place] [address] 42963- 4642 Nov, Severe episode of recurrent major depressive disorder, without psychotic features F33.2 and Posttraumatic stress disorder F43.10 [place] [id number] [place] [address] 09318- 3041 Nov, Primary insomnia F51.01 ; Severe episode of recurrent major depressive disorder, without psychotic features F33.2 and Dyspareunia in female N94.10 [place] [address], [place] [address] Nov, [place] [address], [place] [address] 56[address] October, Severe episode of recurrent major depressive disorder, without psychotic features F33.2 and Posttraumatic stress disorder F43.10 [place] [address] [place] [address]67- 1310 October, Severe episode of recurrent major depressive disorder, without psychotic features F33.2 and Posttraumatic stress disorder F43.10 [place] [address] [place] [address] 04135- 0535 October, Dysthymia F34.1 ; Encounter to establish care Z76.89 ; Routine health maintenance Z00.00 and Closed compression fracture of L2 lumbar vertebra with routine healing, subsequent encounter S32.020D [facility] [address] [facility] [id number] [place] [address] Sep, Lumbar pain with radiation down right leg M54.5 and Nausea R11.0 IMMUNIZATIONS No Known Immunizations SOCIAL HISTORY Never Assessed REASON FOR VISIT [facility] Activity Details Follow Up 3 Months Reason:insomnia VITAL SIGNS Height 67 in 2017-11-25 Weight 208.8 lbs 2017-11-25 Temperature 97.9 degrees Fahrenheit 2017-11-25 Heart Rate 64 bpm 2017-11-25 Respiratory Rate 18 2017-11-25 BMI 32.70 kg/m2 2017-11-25 Blood pressure systolic 118 mmHg 2017-11-25 Blood pressure diastolic 82 mmHg 2017-11-25 MEDICATIONS Medication Instructions Dosage Frequency Start Date End Date Duration Status Trazodone HCl 50 mg Orally at bedtime 1/2 tablet at bedtime as needed Nov, 30 day(s) Active Baclofen 10 mg Orally Three times a day 1 tablet with food or milk 8h October, Nov, 30 day(s) Active Prozac 40 MG Orally Once a day [...]
--- OUTSIDE RECORDS SUMMARY | 2018-08-10 15:47 | XMS REPORT ---
Author Author ERNESTOREA [facility] Address [address] [place] [address] Care Team Providers Care Strategic Intelligence Officer Name Role Phone REA OROZCO Unavailable PROBLEMS Type Condition ICD9-CM Code ONF53-QE Code Onset Dates Condition Status SNOMED Code Problem Migraine without aura and without status migrainosus, not intractable G43.009 Active 807886111 Problem Dyspareunia in female N94.10 Active 39953642 Problem Severe episode of recurrent major depressive disorder, without psychotic features F33.2 Active 75971396 Problem Dysthymia F34.1 Active 82465859 Problem Primary insomnia F51.01 Active 7494649 Problem Posttraumatic stress disorder F43.10 Active 26209827 ALLERGIES No Information ENCOUNTERS Encounter Location Date Diagnosis [place] [address] [address] Mar, [place] [address] [address]- [address] Feb, [place] [address] [address] Feb, Migraine without aura and without status migrainosus, not intractable G43.009 and Dysthymia F34.1 [place] [id number] [place] [address]- 8011 Jan, Severe episode of recurrent major depressive disorder, without psychotic features F33.2 and Posttraumatic stress disorder F43.10 [place] [address] [address]- 2569 Jan, [place] [address] 0[address]- 9871 Jan, Syncope, unspecified syncope type R55 [place] [address] [place] [address]- 7[address] Jan, [facility] [id number], [place] [address] 3[address] Jan, Vertigo R42 [facility] [id number] [place] [address]83 Jan, Dizziness R42 ; Acute cystitis with hematuria N30.01 and Dysuria R30.0 [facility] [address] [place] [address] 88501- 4667 Jan, Severe episode of recurrent major depressive disorder, without psychotic features F33.2 and Posttraumatic stress disorder F43.10 [facility] [id number] [place] [address] 11626- 0637 Dec, Severe episode of recurrent major depressive disorder, without psychotic features F33.2 [place] [id number] [place] [address] 92363- 6686 Dec, Severe episode of recurrent major depressive disorder, without psychotic features F33.2 and Posttraumatic stress disorder F43.10 [facility] [address], [place] [address]- 69[address] Nov, Dyspareunia in female N94.10 [facility] [address], [place] [address]- 4[address] Nov, Severe episode of recurrent major depressive disorder, without psychotic features F33.2 and Posttraumatic stress disorder F43.10 [facility] [address], [place] [address]- 9[address] Nov, Primary insomnia F51.01 ; Severe episode of recurrent major depressive disorder, without psychotic features F33.2 and Dyspareunia in female N94.10 [facility] [address], [place] [address]- [address]83 Nov, [facility] [address], [place] [address]- 7971 October, Severe episode of recurrent major depressive disorder, without psychotic features F33.2 and Posttraumatic stress disorder F43.10 [facility] [address] [facility] [id number] [address] 14 Oct, 2017 Severe episode of recurrent major depressive disorder, without psychotic features F33.2 and Posttraumatic stress disorder F43.10 [facility] [address] [facility] [id number] [address] 14 Oct, 2017 Dysthymia F34.1 ; Encounter to establish care Z76.89 ; Routine health maintenance Z00.00 and Closed compression fracture of L2 lumbar vertebra with routine healing, subsequent encounter S32.020D [place] [address] [address]- 9291 Sep, Lumbar pain with radiation down right leg M54.5 and Nausea R11.0 IMMUNIZATIONS No Known Immunizations SOCIAL HISTORY Never Assessed REASON FOR VISIT PLAN OF CARE VITAL SIGNS MEDICATIONS Unknown [...]
--- OUTSIDE RECORDS SUMMARY | 2018-08-10 15:47 | XMS REPORT ---
Author Author NORMA GREEN [facility] Address [address] [place] [address] Care Team Providers Care Word Processor Operator Name Role Phone NORMA GREEN Unavailable PROBLEMS Type Condition ICD9-CM Code XHL85-YA Code Onset Dates Condition Status SNOMED Code Problem Dyspareunia in female N94.10 Active 31092054 Problem Primary insomnia F51.01 Active 4653015 Problem Dysthymia F34.1 Active 61746940 Problem Posttraumatic stress disorder F43.10 Active 89318905 Problem Severe episode of recurrent major depressive disorder, without psychotic features F33.2 Active 23666036 ALLERGIES No Information ENCOUNTERS Encounter Location Date Diagnosis [facility] [address] [address]- [address] Jan, [facility] [address] [address]- 0921 Jan, [facility] [address] [address]- 7522 Jan, [facility] [address] 9[address]27- 6535 Jan, Syncope, unspecified syncope type R55 [facility] [address] [address]39- [address]37 Jan, [facility] [address] [address]- 8114 Jan, Vertigo R42 [facility] [address] [address] -[address] Jan, Dizziness R42 ; Acute cystitis with hematuria N30.01 and Dysuria R30.0 [facility] [address] [address]- 0350 Jan, Severe episode of recurrent major depressive disorder, without psychotic features F33.2 and Posttraumatic stress disorder F43.10 [place] [address], [place] [address]- 59[address] Dec, Severe episode of recurrent major depressive disorder, without psychotic features F33.2 [place] [address], [place] [address]- 3089 Dec, Severe episode of recurrent major depressive disorder, without psychotic features F33.2 and Posttraumatic stress disorder F43.10 [place] [address], [place] [address]- 6098 Nov, Dyspareunia in female N94.10 [place] [address], [place] [address]- 9051 Nov, Severe episode of recurrent major depressive disorder, without psychotic features F33.2 and Posttraumatic stress disorder F43.10 [place] [address], [place] [address]- 7395 Nov, Primary insomnia F51.01 ; Severe episode of recurrent major depressive disorder, without psychotic features F33.2 and Dyspareunia in female N94.10 [place] [address], [place] [address]- [address] Nov, [place] [address], [place] [address]- 1226 October, Severe episode of recurrent major depressive disorder, without psychotic features F33.2 and Posttraumatic stress disorder F43.10 [place] [address], [place] [address]- 4292 October, Severe episode of recurrent major depressive disorder, without psychotic features F33.2 and Posttraumatic stress disorder F43.10 [place] [address] [place] [address], [place] [address]- 6598 October, Dysthymia F34.1 ; Encounter to establish care Z76.89 ; Routine health maintenance Z00.00 and Closed compression fracture of L2 lumbar vertebra with routine healing, subsequent [facility].020D [facility] [address] [facility] [id number] [place] [address]- [address] Sep, Lumbar pain with radiation down right leg M54.5 and Nausea R11.0 IMMUNIZATIONS No Known Immunizations SOCIAL HISTORY Never Assessed REASON FOR VISIT f/u PLAN OF CARE Activity Details Follow Up 2 Weeks Reason: F/U VITAL SIGNS MEDICATIONS Unknown Medications RESULTS No Results PROCEDURES Procedure Date Ordered Result Body Site Psychotherapy, patient &/family, 45 minutes, established patient November 30, 2017 INSTRUCTIONS MEDICATIONS ADMINISTERED No Known [...]
--- OUTSIDE RECORDS SUMMARY | 2018-08-10 15:47 | XMS REPORT ---
Author Author WILLIAM OROZCO [facility] Address [address] [place] [address] Care Team Providers Care Senior Sales Representative Name Role Phone WILLIAM OROZCO Unavailable PROBLEMS Type Condition ICD9-CM Code MCJ29-IP Code Onset Dates Condition Status SNOMED Code Problem Migraine without aura and without status migrainosus, not intractable G43.009 Active 103070333 Problem Dyspareunia in female N94.10 Active 08762079 Problem Severe episode of recurrent major depressive disorder, without psychotic features F33.2 Active 28796876 Problem Dysthymia F34.1 Active 13270602 Problem Primary insomnia F51.01 Active 2497194 Problem Posttraumatic stress disorder F43.10 Active 94985132 ALLERGIES Substance Reaction Event Type Date Status Penicillin V Potassium Unknown Drug Allergy Jan, Active Ketorolac Tromethamine Unknown Drug Allergy Jan, Active Erythromycin Unknown Drug Allergy Jan, Active ENCOUNTERS Encounter Location Date Diagnosis [facility] [id number] [place] [address]24 Mar, [facility] [id number] [place] [address]- [address]60 Feb, [facility] [id number] [place] [address] 08742- 7494 Feb, Migraine without aura and without status migrainosus, not intractable G43.[address] [facility] [id number] [place] [address]61- 4538 Jan, Severe episode of recurrent major depressive disorder, without psychotic features F33.2 and Posttraumatic stress disorder F43.10 [facility] [address] [place] [address]14- 4913 Jan, [facility] [address] [address]- [address]60 Jan, Syncope, unspecified syncope type R55 [facility] [id number] [place] [address] 57144- 2462 Jan, [facility] [id number] [place] [address] 12887- 3326 Jan, Vertigo R42 [facility] [id number] [place] [address]8317 -5723 Jan, Dizziness R42 ; Acute cystitis with hematuria N30.01 and Dysuria R30.0 [place] [address] [place] [address] 27892- 2441 Jan, Severe episode of recurrent major depressive disorder, without psychotic features F33.2 and Posttraumatic stress disorder F43.10 [place] [address] [place] [address] 37705- 9396 Dec, Severe episode of recurrent major depressive disorder, without psychotic features F33.2 [place] [address] [place] [id number] [place] [address] 56563- 9989 Dec, Severe episode of recurrent major depressive disorder, without psychotic features F33.2 and Posttraumatic stress disorder F43.10 [facility] [address] [address]- 5161 Nov, Dyspareunia in female N94.10 [place] [address] [place] [address]6905- 5953 Nov, Severe episode of recurrent major depressive disorder, without psychotic features F33.2 and Posttraumatic stress disorder F43.10 [place] [address] [address] [id number] [place] [address] 67647- 7334 Nov, Primary insomnia F51.01 ; Severe episode of recurrent major depressive disorder, without psychotic features F33.2 and Dyspareunia in female N94.10 [facility] [address] [place] [address] 16183- 7163 Nov, [place] [address] [id number] [address]- 8278 October, Severe episode of recurrent major depressive disorder, without psychotic features F33.2 and Posttraumatic stress disorder F43.10 [place] [address] [place] [address] [address]- 5099 October, Severe episode of recurrent major depressive disorder, without psychotic features F33.2 and Posttraumatic stress disorder F43.10 [place] [address] [address]- 3375 October, Dysthymia F34.1 ; Encounter to establish care Z76.89 ; Routine health maintenance Z00.00 and Closed compression fracture of L2 lumbar vertebra with routine healing, subsequent encounter S32.020D [place] [address] [place] [address] [address]- 6922 Sep, Lumbar pain with radiation down right leg M54.5 and Nausea R11.0 IMMUNIZATIONS No Known Immunizations SOCIAL HISTORY Never Assessed REASON FOR VISIT Dizziness, headaches and weakness, fatigue since the , was seen at [facility] and given fluids and antibiotics for UTI Homar Edwards RN, When she wakes up she is dizzy and sleepy PLAN OF CARE Activity Details Follow Up 2 - 3 Days if not better Reason:dizziness VITAL SIGNS Height 67 in 2018-01-27 Weight 212 lbs 2018-01-27 Temperature 97.9 degrees Fahrenheit 2018-01-27 Heart Rate 75 bpm 2018-01-27 Respiratory Rate 18 2018-01-27 BMI 33.20 kg/m2 2018-01-27 Blood pressure systolic 148 mmHg 2018-01-27 Blood pressure diastolic 92 mmHg 2018-01-27 MEDICATIONS Medication Instructions Dosage Frequency Start Date End Date Duration Status Macrobid 100 MG Orally every 12 hrs 1 capsule with food 12h Jan, Jan, 7 day(s) Active Meclizine HCl 25 MG Orally 2 times a day PRN 1 tablet as needed Jan, 07 days Active Trazodone HCl 50 mg Orally at bedtime 1/2 tablet at bedtime as needed Nov, 30 day(s) Active Prozac 40 MG [...]
--- OUTSIDE RECORDS SUMMARY | 2018-08-10 15:47 | XMS REPORT ---
Author Author NORMA GREEN [facility] Address [address] [place] [address] Care Team Providers Care Video Control Engineer Name Role Phone NORMA GREEN Unavailable PROBLEMS Type Condition ICD9-CM Code QYX27-AP Code Onset Dates Condition Status SNOMED Code Problem Migraine without aura and without status migrainosus, not intractable G43.009 Active 187053372 Problem Dyspareunia in female N94.10 Active 86911129 Problem Severe episode of recurrent major depressive disorder, without psychotic features F33.2 Active 76968509 Problem Dysthymia F34.1 Active 19622513 Problem Primary insomnia F51.01 Active 0789920 Problem Posttraumatic stress disorder F43.10 Active 54509884 ALLERGIES No Information ENCOUNTERS Encounter Location Date Diagnosis [place] [id number] [place] [address] Mar, [place] [address] [address] Feb, [place] [address] [address] Feb, Migraine without aura and without status migrainosus, not intractable G43.009 and Dysthymia F34.1 [place] [id number] [place] [address] Jan, Severe episode of recurrent major depressive disorder, without psychotic features F33.2 and Posttraumatic stress disorder F43.10 [place] [address] [address] Jan, [place] [address] [address] Jan, Syncope, unspecified syncope type R55 [place] [address] [address] Jan, [facility] [id number] [place] [address] 8[address] Jan, Vertigo R42 [facility] [address] [address] Jan, Dizziness R42 ; Acute cystitis with hematuria N30.01 and Dysuria R30.0 [facility] [address] [address] Jan, Severe episode of recurrent major depressive disorder, without psychotic features F33.2 and Posttraumatic stress disorder F43.10 [facility] [address] [address] Dec, Severe episode of recurrent major depressive disorder, without psychotic features F33.2 [place] [address] [place] [address]- 1342 Dec, Severe episode of recurrent major depressive disorder, without psychotic features F33.2 and Posttraumatic stress disorder F43.10 [facility] [address] [address] 9[address] Nov, Dyspareunia in female N94.10 [facility] [address] [address] Nov, Severe episode of recurrent major depressive disorder, without psychotic features F33.2 and Posttraumatic stress disorder F43.10 [facility] [address] [address] Nov, Primary insomnia F51.01 ; Severe episode of recurrent major depressive disorder, without psychotic features F33.2 and Dyspareunia in female N94.10 [facility] [address] [address] Nov, [facility] [address] [address] October, Severe episode of recurrent major depressive disorder, without psychotic features F33.2 and Posttraumatic stress disorder F43.10 [facility] [address] [facility] [id number] [address] 14 Oct, 2017 Severe episode of recurrent major depressive disorder, without psychotic features F33.2 and Posttraumatic stress disorder F43.10 [facility] [address] [facility] [id number] [address] 14 Oct, 2017 Dysthymia F34.1 ; Encounter to establish care Z76.89 ; Routine health maintenance Z00.00 and Closed compression fracture of L2 lumbar vertebra with routine healing, subsequent encounter S32.020D [place] [address] [facility] [id number] [address] Sep, Lumbar pain with radiation down right leg M54.5 and Nausea R11.0 IMMUNIZATIONS No Known Immunizations SOCIAL HISTORY Never Assessed REASON FOR VISIT f/u PLAN OF CARE Activity Details Follow Up 2 Weeks Reason: F/U VITAL SIGNS MEDICATIONS Unknown Medications RESULTS No Results PROCEDURES Procedure Date Ordered Result Body Site Psychotherapy, patient &/family, 45 minutes, established patient Jan 21, 2018 INSTRUCTIONS MEDICATIONS ADMINISTERED No Known Medications [...]
--- OUTSIDE RECORDS SUMMARY | 2018-08-10 15:47 | XMS REPORT ---
Author Author WILLIAM OROZCO [facility] Address [address] [place] [address] Care Team Providers Care Public Services Assistant Name Role Phone ZAN OROZCOTA Unavailable PROBLEMS Type Condition ICD9-CM Code VWA27-QS Code Onset Dates Condition Status SNOMED Code Problem Dyspareunia in female N94.10 Active 27710387 Problem Primary insomnia F51.01 Active 1902567 Problem Dysthymia F34.1 Active 21226817 Problem Posttraumatic stress disorder F43.10 Active 96110552 Problem Severe episode of recurrent major depressive disorder, without psychotic features F33.2 Active 48170788 ALLERGIES No Information ENCOUNTERS Encounter Location Date Diagnosis [facility] [address] [address] Mar, [facility] [address] [address] Jan, Severe episode of recurrent major depressive disorder, without psychotic features F33.2 and Posttraumatic stress disorder F43.10 [facility] [id number] [place] [address]- [address] Jan, [facility] [address] [address]- 7957 Jan, Syncope, unspecified syncope type R55 [facility] [address] [address] 79[address] Jan, [facility] [address] [address]- 9[address] Jan, Vertigo R42 [facility] [id number] [place] [address] Jan, Dizziness R42 ; Acute cystitis with hematuria N30.01 and Dysuria R30.0 [place] [address], [place] [address] Jan, Severe episode of recurrent major depressive disorder, without psychotic features F33.2 and Posttraumatic stress disorder F43.10 [facility] [address], [place] [address] Dec, Severe episode of recurrent major depressive disorder, without psychotic features F33.2 [place] [id number], [place] [address] Dec, Severe episode of recurrent major depressive disorder, without psychotic features F33.2 and Posttraumatic stress disorder F43.10 [place] [id number] [place] [address]- 3747 Nov, Dyspareunia in female N94.10 [place] [address], [place] [address] 7[address] Nov, Severe episode of recurrent major depressive disorder, without psychotic features F33.2 and Posttraumatic stress disorder F43.10 [place] [address], [place] [address] 8[address] Nov, Primary insomnia F51.01 ; Severe episode of recurrent major depressive disorder, without psychotic features F33.2 and Dyspareunia in female N94.10 [place] [address], [place] [address] Nov, [place] [address] [place] [address]- 4021 October, Severe episode of recurrent major depressive disorder, without psychotic features F33.2 and Posttraumatic stress disorder F43.10 [place] [id number], [place] [address] October, Severe episode of recurrent major depressive disorder, without psychotic features F33.2 and Posttraumatic stress disorder F43.10 [place] [address], [place] [address] October, Dysthymia F34.1 ; Encounter to establish care Z76.89 ; Routine health maintenance Z00.00 and Closed compression fracture of L2 lumbar vertebra with routine healing, subsequent [facility].020D [facility] [address] [facility] [id number] [place] [address] Sep, Lumbar pain with radiation down right leg M54.5 and Nausea R11.0 IMMUNIZATIONS No Known Immunizations SOCIAL HISTORY Never Assessed REASON FOR VISIT Refill request PLAN OF CARE VITAL SIGNS MEDICATIONS Medication [...]
--- OUTSIDE RECORDS SUMMARY | 2018-08-10 15:47 | XMS REPORT ---
Author Author NELLY Collazo [facility] Address [address] [place] [address] Care Team Providers Care Stone Gluer Name Role Phone NELLY Collazo Unavailable PROBLEMS Type Condition ICD9-CM Code RCF65-YM Code Onset Dates Condition Status SNOMED Code Problem Migraine without aura and without status migrainosus, not intractable G43.009 Active 832242805 Problem Dyspareunia in female N94.10 Active 68783282 Problem Severe episode of recurrent major depressive disorder, without psychotic features F33.2 Active 64906925 Problem Dysthymia F34.1 Active 70504529 Problem Primary insomnia F51.01 Active 1752435 Problem Posttraumatic stress disorder F43.10 Active 34725810 ALLERGIES Substance Reaction Event Type Date Status Penicillin V Potassium Unknown Drug Allergy Jan, Active Ketorolac Tromethamine Unknown Drug Allergy Jan, Active Erythromycin Unknown Drug Allergy Jan, Active ENCOUNTERS Encounter Location Date Diagnosis [place] [address] [place] [address] Mar, [place] [address] [id number] [place] [address]86- 5611 Feb, [place] [id number] [place] [address]- 4927 Feb, Migraine without aura and without status migrainosus, not intractable G43.009 and Dysthymia F34.1 [place] [address] [address]- [address] Jan, Severe episode of recurrent major depressive disorder, without psychotic features F33.2 and Posttraumatic stress disorder F43.10 [place] [address] [place] [address]- 5046 Jan, [facility] [place] [address] [place] [address]- 7087 Jan, Syncope, unspecified syncope type R55 [facility] [place] [id number] [place] [address]760- 2894 Jan, [facility] [place] [id number] [place] [address] 86[address]- 5374 Jan, Vertigo R42 [facility] [id number] [place] [address] Jan, Dizziness R42 ; Acute cystitis with hematuria N30.01 and Dysuria R30.0 [place] [id number] [place] [address]- 5974 Jan, Severe episode of recurrent major depressive disorder, without psychotic features F33.2 and Posttraumatic stress disorder F43.10 [place] [id number] [place] [address] 84085- 9847 Dec, Severe episode of recurrent major depressive disorder, without psychotic features F33.2 [place] [id number] [place] [address] 74421- 9391 Dec, Severe episode of recurrent major depressive disorder, without psychotic features F33.2 and Posttraumatic stress disorder F43.10 [place] [id number] [place] [address] 82095- 2353 Nov, Dyspareunia in female N94.10 [place] [id number] [place] [address] 49085- 0639 Nov, Severe episode of recurrent major depressive disorder, without psychotic features F33.2 and Posttraumatic stress disorder F43.10 [place] [id number] [place] [address]43- 3[address] 06 Nov, 2017 Primary insomnia F51.01 ; Severe episode of recurrent major depressive disorder, without psychotic features F33.2 and Dyspareunia in female N94.10 [place] [address] [id number] [place] [address] 70859- 5876 Nov, [facility] [place] [address] [facility] [id number] [address] October, Severe episode of recurrent major depressive disorder, without psychotic features F33.2 and Posttraumatic stress disorder F43.10 [place] [address] [facility] [id number] [address] October, Severe episode of recurrent major depressive disorder, without psychotic features F33.2 and Posttraumatic stress disorder F43.10 [place] [address] [facility] [id number] [address] October, Dysthymia F34.1 ; Encounter to establish care Z76.89 ; Routine health maintenance Z00.00 and Closed compression fracture of L2 lumbar vertebra with routine healing, subsequent encounter S32.020D [place] [address] [facility] [id number] [place] [address] Sep, Lumbar pain with radiation down right leg M54.5 and Nausea R11.0 IMMUNIZATIONS No Known Immunizations SOCIAL HISTORY Never Assessed REASON FOR VISIT headache/dizziness since last night. Nausea that started this afternoon with chills.--MARTHA Denis PLAN OF CARE Activity Details Follow Up prn Reason: Future/Pending Procedure IV INFUSION VITAL SIGNS Height 67 in 2018-01-25 Weight 209.4 lbs 2018-01-25 Temperature 97.4 degrees Fahrenheit 2018-01-25 Heart Rate 64 bpm 2018-01-25 Respiratory Rate 18 2018-01-25 BMI 32.79 kg/m2 2018-01-25 Blood pressure systolic 128 mmHg 2018-01-25 Blood pressure diastolic 82 mmHg 2018-01-25 MEDICATIONS Medication Instructions Dosage Frequency Start Date End Date Duration Status Trazodone HCl 50 mg Orally at bedtime 1/2 tablet at bedtime as needed Nov, 30 day(s) Active Macrobid 100 MG Orally every 12 hrs 1 capsule with food 12h Jan, Jan, 7 day(s) Active Prozac 40 MG Orally Once a day 1 capsule in the morning 24h October, 30 day(s) Active RESULTS Name Result Date Reference Range UA LONG DIP (IN HOUSE) 2018-01-25 Lot # [id number] Exp date 2018 09 30 Clarity clear Color dk yellow Odor none GLU negative TONY negative KET negative SG 1.025 BLO 2+ pH 6.0 Protein negative URO 0.2 NIT negative YOHAN 1+ Lot # [id number] Exp date may 2018 PROCEDURES Procedure Date Ordered Result Body Site URINALYSIS, AUTO, W/O SCOPE Jan 25, 2018 URINE CULTURE/COLONY COUNT Jan 25, 2018 HYDRATION IV INFUSION, INIT Jan 25, 2018 INSTRUCTIONS MEDICATIONS ADMINISTERED No Known Medications [...]
--- OUTSIDE RECORDS SUMMARY | 2018-08-10 15:47 | XMS REPORT ---
Author Author WILLIAM OROZCO [facility] Address [address] [place] [address] Care Team Providers Care Hand Carver Name Role Phone WILLIAM OROZCO Unavailable PROBLEMS Type Condition ICD9-CM Code VFI27-ZO Code Onset Dates Condition Status SNOMED Code Problem Dyspareunia in female N94.10 Active 81031540 Problem Primary insomnia F51.01 Active 9289099 Problem Dysthymia F34.1 Active 90154238 Problem Posttraumatic stress disorder F43.10 Active 47981361 Problem Severe episode of recurrent major depressive disorder, without psychotic features F33.2 Active 58224591 ALLERGIES No Information ENCOUNTERS Encounter Location Date Diagnosis [facility] [place] [address] [address] Jan, [facility] [place] [address] [address] Jan, [facility] [place] [address] [address]68 Jan, [facility] [place] [address] [address]- [address] Jan, Syncope, unspecified syncope type R55 [facility] [place] [address] [address]- 3[address] Jan, [facility] [place] [address] [address]- [address] Jan, Vertigo R42 [facility] [address] [address] Jan, Dizziness R42 ; Acute cystitis with hematuria N30.01 and Dysuria R30.0 [facility] [place] [address] [address]- 6[address] Jan, Severe episode of recurrent major depressive disorder, without psychotic features F33.2 and Posttraumatic stress disorder F43.10 [place] [address] [address] Dec, Severe episode of recurrent major depressive disorder, without psychotic features F33.2 [place] [address] [address]- 6057 Dec, Severe episode of recurrent major depressive disorder, without psychotic features F33.2 and Posttraumatic stress disorder F43.10 [place] [address] [address]- 15[address] 13 Nov, 2017 Dyspareunia in female N94.10 [place] [address] [place] [address] [id number] [place] [address]- 9137 Nov, Severe episode of recurrent major depressive disorder, without psychotic features F33.2 and Posttraumatic stress disorder F43.10 [place] [address] [place] [address] 63061- 4454 Nov, Primary insomnia F51.01 ; Severe episode of recurrent major depressive disorder, without psychotic features F33.2 and Dyspareunia in female N94.10 [place] [address] [address]- [address] Nov, [place] [address] [address]- 6[address] October, Severe episode of recurrent major depressive disorder, without psychotic features F33.2 and Posttraumatic stress disorder F43.10 [place] [address] [address]- [address] October, Severe episode of recurrent major depressive disorder, without psychotic features F33.2 and Posttraumatic stress disorder F43.10 [place] [address] [address]- 4316 October, Dysthymia F34.1 ; Encounter to establish care Z76.89 ; Routine health maintenance Z00.00 and Closed compression fracture of L2 lumbar vertebra with routine healing, subsequent [facility].020D [facility] [address] [facility] [id number] [place] [address] Sep, Lumbar pain with radiation down right leg M54.5 and Nausea R11.0 IMMUNIZATIONS No Known Immunizations SOCIAL HISTORY Never Assessed REASON FOR VISIT Order changed per PLAN OF CARE VITAL SIGNS MEDICATIONS Unknown Medications RESULTS Name Result Date Reference Range Ultrasound : Pelvic, COMPLETE (REFLEX [id number]) 2017-12-10 PROCEDURES No Known procedures INSTRUCTIONS MEDICATIONS ADMINISTERED [...]
--- OUTSIDE RECORDS SUMMARY | 2018-08-10 15:48 | XMS REPORT ---
Author Author WILLIAM OROZCO [facility] Address [address] [place] [address] Care Team Providers Care Car Shifter Name Role Phone WILLIAM OROZCO Unavailable PROBLEMS Type Condition ICD9-CM Code LBU28-UQ Code Onset Dates Condition Status SNOMED Code Problem Dyspareunia in female N94.10 Active 36022782 Problem Primary insomnia F51.01 Active 7365537 Problem Dysthymia F34.1 Active 52320871 Problem Posttraumatic stress disorder F43.10 Active 41207956 Problem Severe episode of recurrent major depressive disorder, without psychotic features F33.2 Active 25755326 ALLERGIES No Information ENCOUNTERS Encounter Location Date Diagnosis [facility] [address] [address] Jan, [facility] [address] [address]- [address] Jan, [facility] [address] [address]- [address] Jan, [facility] [address] [address]- 77[address] Jan, Syncope, unspecified syncope type R55 [facility] [address] [address]- [address] Jan, [facility] [address] [address] Jan, Vertigo R42 [facility] [address] [address] Jan, Dizziness R42 ; Acute cystitis with hematuria N30.01 and Dysuria R30.0 [facility] [address] [address]- [address] Jan, Severe episode of recurrent major depressive disorder, without psychotic features F33.2 and Posttraumatic stress disorder F43.10 [place] [address] [address] Dec, Severe episode of recurrent major depressive disorder, without psychotic features F33.2 [place] [address] [address] 2142 Dec, Severe episode of recurrent major depressive disorder, without psychotic features F33.2 and Posttraumatic stress disorder F43.10 [place] [address] [address]- [address] 13 Nov, 2017 Dyspareunia in female N94.10 [place] [address] [place] [id number] [place] [address]- 8939 Nov, Severe episode of recurrent major depressive disorder, without psychotic features F33.2 and Posttraumatic stress disorder F43.10 [place] [address] [place] [address] 24344- 2415 Nov, Primary insomnia F51.01 ; Severe episode of recurrent major depressive disorder, without psychotic features F33.2 and Dyspareunia in female N94.10 [place] [address] [address] Nov, [place] [address] [address] October, Severe episode of recurrent major depressive disorder, without psychotic features F33.2 and Posttraumatic stress disorder F43.10 [place] [address] [address] 9169 October, Severe episode of recurrent major depressive disorder, without psychotic features F33.2 and Posttraumatic stress disorder F43.10 [place] [address] [address] 87[address] October, Dysthymia F34.1 ; Encounter to establish care Z76.89 ; Routine health maintenance Z00.00 and Closed compression fracture of L2 lumbar vertebra with routine healing, subsequent [facility].020D [facility] [address] [facility] [id number] [place] [address] Sep, Lumbar pain with radiation down right leg M54.5 and Nausea R11.0 IMMUNIZATIONS No Known Immunizations SOCIAL HISTORY Never Assessed REASON FOR VISIT nursing visit PLAN OF CARE VITAL SIGNS MEDICATIONS Unknown [...]
--- OUTSIDE RECORDS SUMMARY | 2018-08-10 15:48 | XMS REPORT ---
Author Author NORMA GREEN [facility] Address [address] [place] [address] Care Team Providers Care Waterworks Pump Station Operator Name Role Phone NORMA GREEN Unavailable PROBLEMS Type Condition ICD9-CM Code [id number] Code Onset Dates Condition Status SNOMED Code Problem Dyspareunia in female N94.10 Active 08765074 Problem Primary insomnia F51.01 Active 8422799 Problem Dysthymia F34.1 Active 35860828 Problem Posttraumatic stress disorder F43.10 Active 13284861 Problem Severe episode of recurrent major depressive disorder, without psychotic features F33.2 Active 83453884 ALLERGIES No Information ENCOUNTERS Encounter Location Date Diagnosis [facility] [address] [address] Jan, [facility] [address] [address] Jan, [facility] [address] [address] Jan, [facility] [address] [address] Jan, Syncope, unspecified syncope type R55 [facility] [address] [address] Jan, [facility] [address] [address] Jan, Vertigo R42 [facility] [address] [address] Jan, Dizziness R42 ; Acute cystitis with hematuria N30.01 and Dysuria R30.0 [facility] [address] [address] Jan, Severe episode of recurrent major depressive disorder, without psychotic features F33.2 and Posttraumatic stress disorder F43.10 [place] [facility] [address] [address] Dec, Severe episode of recurrent major depressive disorder, without psychotic features F33.2 [place] [id number] [address] Dec, Severe episode of recurrent major depressive disorder, without psychotic features F33.2 and Posttraumatic stress disorder F43.10 [place] [address] [address] Nov, Dyspareunia in female N94.10 [place] [id number] [address] Nov, Severe episode of recurrent major depressive disorder, without psychotic features F33.2 and Posttraumatic stress disorder F43.10 [place] [address] [address] Nov, Primary insomnia F51.01 ; Severe episode of recurrent major depressive disorder, without psychotic features F33.2 and Dyspareunia in female N94.10 [place] [id number] [address] Nov, [place] [address] [address] October, Severe episode of recurrent major depressive disorder, without psychotic features F33.2 and Posttraumatic stress disorder F43.10 [place] [id number] [address] October, Severe episode of recurrent major depressive disorder, without psychotic features F33.2 and Posttraumatic stress disorder F43.10 [place] [address] [place] [id number] [address] October, Dysthymia F34.1 ; Encounter to establish care Z76.89 ; Routine health maintenance Z00.00 and Closed compression fracture of L2 lumbar vertebra with routine healing, [facility] [address] [facility] [id number] [place] [address] Sep, Lumbar pain with radiation down right leg M54.5 and Nausea R11.0 IMMUNIZATIONS No Known Immunizations SOCIAL HISTORY Never Assessed REASON FOR VISIT F/U PLAN OF CARE Activity Details Follow Up 2 Weeks Reason: F/U VITAL SIGNS MEDICATIONS Unknown Medications RESULTS No Results PROCEDURES Procedure Date Ordered Result Body Site Psychotherapy, patient &/family, 45 minutes, established patient November 09, 2017 INSTRUCTIONS MEDICATIONS ADMINISTERED No Known Medications [...]
--- OUTSIDE RECORDS SUMMARY | 2018-08-10 15:48 | XMS REPORT ---
Author Author WILLIAM OROZCO [facility] Address [address] [place] [address] Care Team Providers Care Academic Support Assistant Name Role Phone WILLIAM OROZCO Unavailable PROBLEMS Type Condition ICD9-CM Code HTB21-NO Code Onset Dates Condition Status SNOMED Code Problem Dyspareunia in female N94.10 Active 48853847 Problem Primary insomnia F51.01 Active 0695219 Problem Dysthymia F34.1 Active 86585810 Problem Posttraumatic stress disorder F43.10 Active 07961052 Problem Severe episode of recurrent major depressive disorder, without psychotic features F33.2 Active 32825132 ALLERGIES Substance Reaction Event Type Date Status Penicillin V Potassium Unknown Drug Allergy October, Active Ketorolac Tromethamine Unknown Drug Allergy October, Active Erythromycin Unknown Drug Allergy October, Active ENCOUNTERS Encounter Location Date Diagnosis [facility] [address] [address] Jan, [facility] [address] [address] Jan, [facility] [address] [address] Jan, Syncope, unspecified syncope type R55 [facility] [address] [address] Jan, [facility] [address] [address] Jan, Vertigo R42 [facility] [address] [address] Jan, Dizziness R42 ; Acute cystitis with hematuria N30.01 and Dysuria R30.0 [facility] [address] [place] [address] Jan, Severe episode of recurrent major depressive disorder, without psychotic features F33.2 and Posttraumatic stress disorder F43.10 [place] [address] [address] Dec, Severe episode of recurrent major depressive disorder, without psychotic features F33.2 [place] [address] [address] Dec, Severe episode of recurrent major depressive disorder, without psychotic features F33.2 and Posttraumatic stress disorder F43.10 [place] [address] [address] Nov, Dyspareunia in female N94.10 [place] [address] [address] Nov, Severe episode of recurrent major depressive disorder, without psychotic features F33.2 and Posttraumatic stress disorder F43.10 [place] [address] [address] Nov, Primary insomnia F51.01 ; Severe episode of recurrent major depressive disorder, without psychotic features F33.2 and Dyspareunia in female N94.10 [place] [address] [address] Nov, [place] [address] [address] October, Severe episode of recurrent major depressive disorder, without psychotic features F33.2 and Posttraumatic stress disorder F43.10 [place] [address] [address] October, Severe episode of recurrent major depressive disorder, without psychotic features F33.2 and Posttraumatic stress disorder F43.10 [place] [address] [place] [id number] [address] October, Dysthymia F34.1 ; Encounter to establish care Z76.89 ; Routine health maintenance Z00.00 and Closed compression fracture of L2 lumbar vertebra with routine healing, subsequent [facility] S[facility].020D [facility] [address] [facility] [id number] [place] [address] Sep, Lumbar pain with radiation down right leg M54.5 and Nausea R11.0 IMMUNIZATIONS No Known Immunizations SOCIAL HISTORY Never Assessed REASON FOR VISIT Establish Care--tcuppettRn PLAN OF CARE Activity Details Follow Up 4 weeks or as indicated by lab Reason: VITAL SIGNS Height 67 in 2017 Weight 207.5 lbs 2017 Temperature 98.2 degrees Fahrenheit 2017 Heart Rate 76 bpm 2017 Respiratory Rate 20 2017 BMI 32.50 kg/m2 2017 Blood pressure systolic 122 mmHg 2017 Blood pressure diastolic 70 mmHg 2017 MEDICATIONS Medication Instructions Dosage Frequency Start Date End Date Duration Status Baclofen 10 mg Orally Three times a day 1 tablet with food or milk 8h October, Nov, 30 day(s) Active Prozac 20 mg Orally Once a day 1 capsule in the morning 24h October, 30 day(s) Active Naproxen 500 mg Orally every 12 hrs 1 tablet with food or milk as needed 12h October, Active RESULTS No Results PROCEDURES Procedure Date Ordered Result Body Site LIPID PANEL 2017 COMPREHEN METABOLIC PANEL 2017 VENIPUNCT, ROUTINE* 2017 ASSAY THYROID STIM HORMONE 2017 COMPLETE CBC W/AUTO DIFF WBC 2017 Hemoglobin Test Send Out 0 dollar 2017 INSTRUCTIONS MEDICATIONS ADMINISTERED No Known Medications [...]
--- OUTSIDE RECORDS SUMMARY | 2018-08-10 15:48 | XMS REPORT ---
Author Author NORMA GREEN [facility] Address [address] [place] [address] Care Team Providers Care Cake Maker Name Role Phone NORMA GREEN Unavailable PROBLEMS Type Condition ICD9-CM Code CQP02-WP Code Onset Dates Condition Status SNOMED Code Problem Dyspareunia in female N94.10 Active 90457595 Problem Primary insomnia F51.01 Active 9952263 Problem Dysthymia F34.1 Active 65048723 Problem Posttraumatic stress disorder F43.10 Active 64099333 Problem Severe episode of recurrent major depressive disorder, without psychotic features F33.2 Active 51903447 ALLERGIES No Information ENCOUNTERS Encounter Location Date Diagnosis [place] [id number] [place] [id number] [place] [address] Jan, [facility] [id number] [place] [address] Jan, [facility] [address] [place] [id number] [place] [address] Jan, Vertigo R42 [facility] [address] [place] [place] [id number] [place] [address] Jan, Dizziness R42 ; Acute cystitis with hematuria N30.01 and Dysuria R30.0 [facility] [address] [place] [place] [id number] [place] [address] Jan, Severe episode of recurrent major depressive disorder, without psychotic features F33.2 and Posttraumatic stress disorder F43.10 [facility] [address] [id number] [place] [address] Dec, Severe episode of recurrent major depressive disorder, without psychotic features F33.2 [facility] [address] [address] Dec, Severe episode of recurrent major depressive disorder, without psychotic features F33.2 and Posttraumatic stress disorder F43.10 [place] [address] [place] [id number] [place] [address] 13 Nov, 2017 Dyspareunia in female N94.10 [place] [address] [id number] [place] [address] 11 Nov, 2017 Severe episode of recurrent major depressive disorder, without psychotic features F33.2 and Posttraumatic stress disorder F43.10 [place] [address] [place] [id number] [place] [address] 06 Nov, 2017 Primary insomnia F51.01 ; Severe episode of recurrent major depressive disorder, without psychotic features F33.2 and Dyspareunia in female N94.10 [place] [address] [place] [id number] [place] [address] Nov, [place] [address] [place] [id number] [place] [address] October, Severe episode of recurrent major depressive disorder, without psychotic features F33.2 and Posttraumatic stress disorder F43.10 [place] [address] [place] [id number] [place] [address] 14 Oct, 2017 Severe episode of recurrent major depressive disorder, without psychotic features F33.2 and Posttraumatic stress disorder F43.10 [place] [address] [place] [address] 14 Oct, 2017 Dysthymia F34.1 ; Encounter to establish care Z76.89 ; Routine health maintenance Z00.00 and Closed compression fracture of L2 lumbar vertebra with routine healing, subsequent encounter S32.020D [place] [address] [place] [id number] [place] [address] Sep, Lumbar pain with radiation down right leg M54.5 and Nausea R11.0 IMMUNIZATIONS No Known Immunizations SOCIAL HISTORY Never Assessed REASON FOR VISIT [facility] PLAN OF CARE Activity Details Follow Up Next Available Reason: F/U VITAL SIGNS MEDICATIONS Medication Instructions Dosage Frequency Start Date End Date Duration Status Prozac 20 mg Orally Once a day 1 capsule in the morning 24h October, 30 day(s) Active Naproxen 500 mg Orally every 12 hrs 1 tablet with food or milk as needed 12h October, Active Baclofen 10 mg Orally Three times a day 1 tablet with food or milk 8h October, Nov, 30 day(s) Active RESULTS No Results PROCEDURES Procedure Date Ordered Result Body Site Psych diagnostic evaluation, established patient 2017 INSTRUCTIONS MEDICATIONS ADMINISTERED No Known Medications [...]
--- OUTSIDE RECORDS SUMMARY | 2018-08-10 15:48 | XMS REPORT ---
Author Author WILLIAM OROZCO [facility] Address [address] [place] [address] Care Team Providers Care Air Pollution Specialist Name Role Phone ZAN OROZCOTA Unavailable PROBLEMS Type Condition ICD9-CM Code VSI75-AR Code Onset Dates Condition Status SNOMED Code Problem Dyspareunia in female N94.10 Active 76976942 Problem Primary insomnia F51.01 Active 5534288 Problem Dysthymia F34.1 Active 09146094 Problem Posttraumatic stress disorder F43.10 Active 27578008 Problem Severe episode of recurrent major depressive disorder, without psychotic features F33.2 Active 49106074 ALLERGIES Substance Reaction Event Type Date Status Penicillin V Potassium Unknown Drug Allergy Sep, Active Ketorolac Tromethamine Unknown Drug Allergy Sep, Active Erythromycin Unknown Drug Allergy Sep, Active ENCOUNTERS Encounter Location Date Diagnosis [place] [address] [place] [address] Jan, [place] [address] [place] [id number] [place] [address] Jan, [place] [address] [place] [id number] [place] [address] Jan, Severe episode of recurrent major depressive disorder, without psychotic features F33.2 and Posttraumatic stress disorder F43.10 [facility] [address] [place] [address] Dec, Severe episode of recurrent major depressive disorder, without psychotic features F33.2 [place] [address] [place] [id number] [place] [address] Dec, Severe episode of recurrent major depressive disorder, without psychotic features F33.2 and Posttraumatic stress disorder F43.10 [place] [address] [place] [id number] [place] [address] 13 Nov, 2017 Dyspareunia in female N94.10 [place] [address] [place] [address] 11 Nov, 2017 Severe episode of recurrent major depressive disorder, without psychotic features F33.2 and Posttraumatic stress disorder F43.10 [place] [address] [place] [id number] [place] [address] 06 Nov, 2017 Primary insomnia F51.01 ; Severe episode of recurrent major depressive disorder, without psychotic features F33.2 and Dyspareunia in female N94.10 [place] [address] [place] [id number] [place] [address] Nov, [place] [address] [place] [id number] [place] [address] October, Severe episode of recurrent major depressive disorder, without psychotic features F33.2 and Posttraumatic stress disorder F43.10 [place] [address] [place] [id number] [place] [address] 14 Oct, 2017 Severe episode of recurrent major depressive disorder, without psychotic features F33.2 and Posttraumatic stress disorder F43.10 [place] [address] [place] [id number] [place] [address] 14 Oct, 2017 Dysthymia F34.1 ; Encounter to establish care Z76.89 ; Routine health maintenance Z00.00 and Closed compression fracture of L2 lumbar vertebra with routine healing, subsequent encounter S32.020D [place] [address] [place] [address] Sep, Lumbar pain with radiation down right leg M54.5 and Nausea R11.0 IMMUNIZATIONS No Known Immunizations SOCIAL HISTORY Never Assessed REASON FOR VISIT ER follow up, was seen in ED for back strain-AHarrymanRN, Patient had rx written for prednisone and flexeril but reports she cannot afford them so she was sent here PLAN OF CARE Activity Details Follow Up 2-4 weeks Reason:establish care VITAL SIGNS Height 67 in 2017-10-15 Weight 206.6 lbs 2017-10-15 Temperature 97.2 degrees Fahrenheit 2017-10-15 Heart Rate 84 bpm 2017-10-15 Respiratory Rate 20 2017-10-15 BMI 32.35 kg/m2 2017-10-15 Blood pressure systolic 118 mmHg 2017-10-15 Blood pressure diastolic 74 mmHg 2017-10-15 MEDICATIONS Medication Instructions Dosage Frequency Start Date End Date Duration Status Promethazine HCl 25 MG Orally every 12 hrs 1 tablet as needed 12h Sep, October, 05 days Active PredniSONE 20 mg Orally Once a day 1 tablet 24h Sep, October, 05 days Active Cyclobenzaprine HCl 10 mg Orally Three times a day 1 tablet as needed 8h Sep, Active RESULTS Name Result Date Reference Range Xray : Spine, Lumbar 2-3 views (IN HOUSE) 2017-10-15 PROCEDURES Procedure Date Ordered Result Body Site X-RAY EXAM OF LOWER SPINE October 15, 2017 INSTRUCTIONS MEDICATIONS ADMINISTERED No Known Medications [...]
--- NOTE | 2018-08-10 16:10 | NUR ---
TO ROOM PER W/C WHEN TAKING WITH PAIENT WHILE NOT IN ROMM TEARFUL REPORTS THAT IS UNDER A LOT OF STRESS,AND SHE IS THE ONLY ONE WITH INCOME.
[2018-08-10 16:34] LABS: BASOPHILS % (AUTO) 0 % (0-10); EOSINOPHILS # (AUTO) 0.2 10^3/uL (0.0-0.3); EOSINOPHILS % (AUTO) 2 % (0-10); HEMATOCRIT 39 % (35-52); HEMOGLOBIN 12.7 G/DL (11.5-16.0); LYMPHOCYTES # (AUTO) 3.6 X 10^3 (1.0-4.0); LYMPHOCYTES % (AUTO) 36 % (12-44); MEAN CORPUSCULAR HEMOGLOBIN 31 PG (25-34); MEAN CORPUSCULAR HGB CONC 33 G/DL (32-36); MEAN CORPUSCULAR VOLUME 93 FL (80-99); MEAN PLATELET VOLUME 9.8 FL (7.4-10.4); MONOCYTES # (AUTO) 0.7 X 10^3 (0.0-1.0); MONOCYTES % (AUTO) 7 % (0-12); NEUTROPHILS # (AUTO) 5.6 X 10^3 (1.8-7.8); NEUTROPHILS % (AUTO) 55 % (42-75); PLATELET COUNT 309 10^3/uL (130-400); RED CELL DISTRIBUTION WIDTH 12.6 % (10.0-14.5); WHITE BLOOD COUNT 10.1 10^3/uL (4.3-11.0)
[2018-08-10 16:42] LABS: BILIRUBIN,URINE NEGATIVE (NEGATIVE); CLARITY,URINE SLIGHTLY CLOUDY; COLOR,URINE YELLOW; GLUCOSE, URINE (UA) NEGATIVE (NEGATIVE); KETONES,URINE NEGATIVE (NEGATIVE); LEUKOCYTE ESTERASE ,URINE NEGATIVE (NEGATIVE); NITRITE,URINE NEGATIVE (NEGATIVE); PH,URINE 6 (5-9); PROTEIN,URINE NEGATIVE (NEGATIVE); UROBILINOGEN,URINE NORMAL (NORMAL)
[2018-08-10 16:54] LABS: ALANINE AMINOTRANSFERASE 7 U/L (0-55); ALBUMIN 4.4 GM/DL (3.2-4.5); ALKALINE PHOSPHATASE 85 U/L (40-136); AMYLASE 57 U/L (25-125); BILIRUBIN,TOTAL 0.3 MG/DL (0.1-1.0); BUN/CREATININE RATIO 11; CALCIUM 9.9 MG/DL (8.5-10.1); CARBON DIOXIDE 27 MMOL/L (21-32); CHLORIDE 103 MMOL/L (98-107); CREATININE SERUM 0.79 MG/DL (0.60-1.30); GFR ESTIMATED > 60; GLUCOSE 89 MG/DL (70-105); LIPASE 75 U/L (8-78); POTASSIUM 4.2 MMOL/L (3.6-5.0); SODIUM 140 MMOL/L (135-145); TOTAL PROTEIN 7.9 GM/DL (6.4-8.2)
[2018-08-10 16:58] LABS: AMPHETAMINE SCREEN, URINE POSITIVE (NEGATIVE); METHAMPHETAMINE SCREEN URINE S POSITIVE (NEGATIVE)
[2018-08-10 17:00] LABS: BARBITURATE SCREEN URINE NEGATIVE (NEGATIVE); BENZODIAZEPINES SCREEN URINE NEGATIVE (NEGATIVE); CANNABINOID SCREEN, URINE NEGATIVE (NEGATIVE); COCAINE SCREEN URINE NEGATIVE (NEGATIVE); METHADONE STAT NEGATIVE (NEGATIVE); OPIATE SCREEN URINE NEGATIVE (NEGATIVE); OXYCODONE STAT NEGATIVE (NEGATIVE); PROPOXYPHENE STAT NEGATIVE (NEGATIVE); TRICYCLIC ANTIDEPRESSANTS SCRE NEGATIVE (NEGATIVE)
[2018-08-10 17:07] LABS: BACTERIA,URINE TRACE /HPF; WBC,URINE 0-2 /HPF
--- NOTE | 2018-08-10 17:19 | Diagnostic Imaging Report ---
PROCEDURE: CT head wo r/o stroke. TECHNIQUE: Multiple contiguous axial images were obtained through the brain without the use of intravenous contrast. INDICATION: Multiple seizures. FINDINGS: No prior head CT studies are available for comparison. The ventricles and sulci are within normal limits. No sulcal effacement, midline shift or hemorrhage is detected. Cisterns are patent. The visualized paranasal sinuses are clear. IMPRESSION: No acute intracranial process is detected. Dictated by: Dictated on workstation # [id number]
--- NOTE | 2018-08-10 18:31 | ED Neurological Problem ---
General Chief Complaint: Neurological Problems Stated Complaint: SEIZURES Nursing Triage Note: pt arrives pov with with c/o seizures. Pt's said that she had 9 last night and 4 today. He didn't call the ambulance because pt wouldn't let him. Pt states she is not in pain. Pt is A&O x2 Nursing Sepsis Screen: No Definite Risk Source: patient Exam Limitations: no limitations History of Present Illness Date Seen by Provider: Aug 10, 2018 Time Seen by Provider: 16:20 Initial Comments 47-year-old female who presents to the emergency room with complaints of seizure -like activity. The patient reports that she's never having any seizures in the past but she reports that her said that she had not seizures last night and for this morning. The patient is alert and oriented to person and place time. She does not voice any complaints at this time. She is very concerned that she needs a work note for tonight. She reports that she's been under a lot of stress financially causing her emotional upset. Her described her seizures as shaking her head from side to side. Timing/Duration: 24 hours Associated Symptoms: seizures Allergies and Home Medications Allergies Coded Allergies: Penicillins (Verified Allergy, Unknown, 10/10/17) erythromycin base (Verified Allergy, Unknown, 10/10/17) ketorolac (Verified Adverse Reaction, Unknown, 10/10/17) Uncoded Allergies: VALACEF (Allergy, Unknown, 10/10/17) Home Medications Cyclobenzaprine HCl 10 Mg Tablet, 10 MG PO TID PRN for SPASMS Prescribed by: RAJESH POPE on 10/10/17 005 Prednisone 20 Mg Tab, 20 MG PO DAILY Prescribed by: RAJESH POPE on 10/10/17 0056 Past Wbboybc-Tycxhs-Smimdz Hx Patient Social History Alcohol Use: Denies Use Recreational Drug Use: No Smoking Status: Never a Smoker Recent Foreign Travel: No Contact w/Someone Who Travel: No Recent Infectious Disease Expo: No Recent Hopitalizations: No Past Medical History Surgeries: Yes Adenoidectomy, Appendectomy, Section, Gallbladder, Hysterectomy, Orthopedic, Tonsillectomy Respiratory: No Cardiac: No Neurological: No : No Genitourinary: No Gastrointestinal: No Musculoskeletal: No Endocrine: No HEENT: No Cancer: No Psychosocial: No Integumentary: No Adverse Reaction/Blood Tranf: No Physical Exam Vital Signs Vital Signs - First Documented 08/10/18 15:53 Temp 97.9 Pulse 68 Resp 18 B/P (MAP) 119/66 (83) Pulse Ox 98 O2 Delivery Room Air Capillary Refill : Less Than 3 Seconds Height, Weight, BMI Height: 5'8.00" Weight: 200lbs. oz. [id number]; BMI Method:Estimated Progress/Results/Core Measures Results/Orders Lab Results Laboratory Tests Test 08/10/18 16:26 08/10/18 16:30 Range/Units White Blood Count 10.1 4.3-11.0 10^3/uL Red Blood Count 4.15 L 4.35-5.85 10^6/uL Hemoglobin 12.7 11.5-16.0 G/DL Hematocrit 39 35-52 % Mean Corpuscular Volume 93 80-99 FL Mean Corpuscular Hemoglobin 31 25-34 PG Mean Corpuscular Hemoglobin Concent 33 32-36 G/DL Red Cell Distribution Width 12.6 10.0-14.5 % Platelet Count 309 130-400 10^3/uL Mean Platelet Volume 9.8 7.4-10.4 FL Neutrophils (%) (Auto) 55 42-75 % Lymphocytes (%) (Auto) 36 12-44 % Monocytes (%) (Auto) 7 0-12 % Eosinophils (%) (Auto) 2 0-10 % Basophils (%) (Auto) 0 0-10 % Neutrophils # (Auto) 5.6 1.8-7.8 X 10^3 Lymphocytes # (Auto) 3.6 1.0-4.0 X 10^3 Monocytes # (Auto) 0.7 0.0-1.0 X 10^3 Eosinophils # (Auto) 0.2 0.0-0.3 10^3/uL Basophils # (Auto) 0.0 0.0-0.1 10^3/uL Sodium Level 140 135-145 MMOL/L Potassium Level 4.2 3.6-5.0 MMOL/L Chloride Level 103 98-107 MMOL/L Carbon Dioxide Level 27 21-32 MMOL/L Anion Gap 10 5-14 MMOL/L Blood Urea Nitrogen 9 7-18 MG/DL Creatinine 0.79 0.60-1.30 MG/DL Estimat Glomerular Filtration Rate > 60 BUN/Creatinine Ratio 11 Glucose Level 89 70-105 MG/DL Calcium Level 9.9 8.5-10.1 MG/DL Corrected Calcium 9.6 8.5-10.1 MG/DL Total Bilirubin 0.3 0.1-1.0 MG/DL Aspartate Amino Transf (AST/SGOT) 17 5-34 U/L Alanine Aminotransferase (ALT/SGPT) 7 0-55 U/L Alkaline Phosphatase 85 40-136 U/L Total Protein 7.9 6.4-8.2 GM/DL Albumin 4.4 3.2-4.5 GM/DL Amylase Level 57 25-125 U/L Lipase 75 8-78 U/L Serum Test, Qualitative NEGATIVE NEGATIVE Urine Color YELLOW Urine Clarity SLIGHTLY CLOUDY Urine pH 6 5-9 Urine Specific [place] 1.010 L 1.016-1.022 Urine Protein NEGATIVE NEGATIVE Urine Glucose (UA) NEGATIVE NEGATIVE Urine Ketones NEGATIVE NEGATIVE Urine Nitrite NEGATIVE NEGATIVE Urine Bilirubin NEGATIVE NEGATIVE Urine Urobilinogen NORMAL NORMAL MG/DL Urine Leukocyte Esterase NEGATIVE NEGATIVE Urine RBC (Auto) 1+ H NEGATIVE Urine RBC NONE /HPF Urine WBC 0-2 /HPF Urine Squamous Epithelial Cells 5-10 /HPF Urine Crystals NONE /LPF Urine Bacteria TRACE /HPF Urine Casts NONE /LPF Urine Mucus NEGATIVE /LPF Urine Culture Indicated NO Urine Opiates Screen NEGATIVE NEGATIVE Urine Oxycodone Screen NEGATIVE NEGATIVE Urine Methadone Screen NEGATIVE NEGATIVE Urine Propoxyphene Screen NEGATIVE NEGATIVE Urine Barbiturates Screen NEGATIVE NEGATIVE Ur Tricyclic Antidepressants Screen NEGATIVE NEGATIVE Urine Phencyclidine Screen NEGATIVE NEGATIVE Urine Amphetamines Screen POSITIVE H NEGATIVE Urine Methamphetamines Screen POSITIVE H NEGATIVE Urine Benzodiazepines Screen NEGATIVE NEGATIVE Urine Cocaine Screen NEGATIVE NEGATIVE Urine Cannabinoids Screen NEGATIVE NEGATIVE My Orders Orders - SAKSHI HIDALGO Comprehensive Metabolic Panel (08/10/18 16:26) Lipase (08/10/18 16:26) Amylase (08/10/18 16:26) Ua Culture If Indicated (08/10/18 16:26) Hcg,Qualitative Serum (08/10/18 16:26) Saline Lock/Iv-Start (08/10/18 16:26) Cbc With Automated Diff (08/10/18 16:26) Drug Screen Stat (Urine) (08/10/18 16:26) Ct Head Wo-R/O Stroke (08/10/18 16:26) Vital Signs/I&O 08/10/18 15:53 Temp 97.9 Pulse 68 Resp 18 B/P (MAP) 119/66 (83) Pulse Ox 98 O2 Delivery Room Air Blood Pressure Mean: 83 Departure Impression Primary Impression: Stress at home Additional Impressions: Methamphetamine use reported seizure-like activity Disposition: HOME, SELF-CARE Condition: Stable/Unchanged Departure-Patient Inst. Decision time for Depature: 18:30 Referrals: [facility] (PCP) Primary Care Physician WILLIAM OROZCO APRN (Family) Primary Care Physician Patient Instructions: Stress, Seizures, Adult (DC) Add. Discharge Instructions: [facility]-up with [facility] within 1 week for recheck. Drink plenty of clear liquids to stay hydrated. Return back to the emergency room for worsening symptoms, return of seizure-like activity, or any other concerns as needed. All discharge instructions reviewed with patient and/or family. Voiced understanding. Work/School Note: School/Childcare Release Date Seen in the Emergency Department: Aug 10, 2018 Time Dismissed from Emergency Department: 18:31 Return to School: Aug 11, 2018 Restrictions: No Restrictions SAKSHI HIDALGO Aug 10, 2018 18:31
[2018-08-10 18:59] VITALS: BP 131/91
== END 2018-08-10 18:54 | disposition home or self-care (01) ==
LOC: EDUNIT# 15:39 → ER 15:42
DX: F43.9 Reaction to severe stress, unspecified (principal); F15.10 Other stimulant abuse, uncomplicated; R29.6 Repeated falls; Z88.0 Allergy status to penicillin; Z88.1 Allergy status to other antibiotic agents; Z88.4 Allergy status to anesthetic agent; Z88.8 Allergy status to other drugs, medicaments and biological substances; Z79.52 Long term (current) use of systemic steroids; Z90.49 Acquired absence of other specified parts of digestive tract; Z98.890 Other specified postprocedural states; Z90.710 Acquired absence of both cervix and uterus; Z90.89 Acquired absence of other organs
CPT/HCPCS: 36415; 70450; 80053; 80306; 81000; 82150; 83690; 84703; 85025